=== PATIENT | female | born 1950 | race Caucasian/White ===

== ENCOUNTER 2020-12-13 03:45 | Inpatient (IN) ==
[2020-12-13 04:00] LABS: ABG BASE EXCESS -8.3 mmol/L (-2.0-2.0)
[2020-12-13 04:01] LABS: ABG ALLEN TEST POS; ABG HCO3 14.3 mmol/L (22-26)
[2020-12-13 04:37] LABS: BASOPHILS % (AUTO) 0.4 % (0.2-1.0); HEMATOCRIT 29.6 % (36.0-47.0); HEMOGLOBIN 10.1 g/dL (12.0-16.0); LYMPHOCYTES # (AUTO) 0.6 X10^3/uL (1.3-2.9); LYMPHOCYTES % (AUTO) 17.8 % (21.0-51.0); MEAN CORPUSCULAR HEMOGLOBIN 28.4 pg (27.0-34.0); MEAN CORPUSCULAR HGB CONC 34.2 g/dL (33.0-35.0); MEAN PLATELET VOLUME 7.5 fL (7.4-11.0); MONOCYTES # (AUTO) 0.2 x10^3/uL (0.3-0.8); MONOCYTES % (AUTO) 6.8 % (0.0-13.0); NEUTROPHILS # (AUTO) 2.6 x10^3/uL (2.2-4.8); PLATELET COUNT 156 X10^3/uL (150.0-450.0); RED BLOOD COUNT 3.57 X10^6/uL (3.5-5.4); RED CELL DISTRIBUTION WIDTH 13.2 % (11.6-16.5); WHITE BLOOD COUNT 3.5 X10^3/uL (3.6-10.0)
[2020-12-13 04:51] LABS: ALBUMIN 2.9 g/dL (3.4-5.0); CREATININE 3.9 mg/dL (0.55-1.02); TOTAL PROTEIN 7.7 g/dL (6.4-8.2)
[2020-12-13 05:01] LABS: CALCIUM 7.9 mg/dL (8.5-10.1); COR CA(FOR HYPOALB) 8.8 mg/dL (8.5-10.1)
[2020-12-13 05:08] LABS: BILIRUBIN,URINE NEGATIVE (NEGATIVE); GLUCOSE, URINE NEGATIVE (NEGATIVE); KETONES,URINE NEGATIVE (NEGATIVE); NITRITES,URINE NEGATIVE (NEGATIVE)
--- NOTE | 2020-12-13 05:30 | DR.SOBA ---
HPI Time Seen Time Seen by Provider: 12/13/20 05:15 Primary Care Physician Primary Care Physician: BYRON Complaints Chief Complaint Doctors Comments: Pt. is a 70 y/o female presenting with SOB, low O2 and a COVID home test which was positive today. Her sats at home was in the 80s. Symptoms started 3-4 days ago. She very recently (< 2 weeks). had a stroke. Chief Complaint:: PT IN ED VIA WHEELCHAIR WITH C/O SOB AND LOW O2 SAT. PT 80% ON 3L/NC. FAMILY STATES PT HAD COVID HOME TEST TODAY WHICH WAS POSITIVE. FAMILY STATES SYMPTOMS STARTED 3-4 DAYS AGO. COVID-19 Has patient experienced Coronavirus symptoms: Yes Coronavirus symptoms experienced: Coughing and Shortness of Breath Reviewed Nurses Notes Reviewed: Yes Source History Provided: Family Member Mode of Arrival Mode of Arrival: Wheelchair Timing Onset of Chief Complaint: 12/09/20 PMH PMH Past Medical History: Yes Past Medical History: Anemia, Anxiety, Asthma, COPD, Coronary Artery Disease, CVA, Dyslipidemia, Hypertension, Renal Disease and Seizures Past Surgical History: Yes Surgical History: Appendectomy, CABG/Valve Surgery, Cholecystectomy, RISK MGR Surgery and Ortho Surgery Past Surgical History Comment: RIGHT CARPAL TUNNEL RIGHT ANKLE LOOP RECORDER Family History History of Family Medical Conditions: Yes Family Medical History: Diabetes Mellitus, Cancer, [place], Coronary Artery Disease, Heart Failure and Hypertension Social History Does patient currently use any type of tobacco product: No Have you used tobacco products in the last 12 months: No Type of Tobacco Use: None Does any household member use tobacco: No Alcohol Use: None Do you use any recreational Drugs:: No Lives With: Family Lives Where: Home Travel Risk Has patient experienced Coronavirus symptoms: Yes Coronavirus symptoms experienced: Coughing and Shortness of Breath Infectious screening In the last 2 months have you had wt loss of >10#?: NO Have you had fever, night sweats or hemotysis?: No Have you traveled outside the country in the last 6 months?: No Isolation: Droplet PE Vital Signs Vitals: Temperature 98.7 F Pulse Rate 103 Respiratory Rate 29 Blood Pressure [Right Arm] 184/78 Blood Pressure 144/60 O2 Sat by Pulse Oximetry 92 General Limitations: No Limitations General Appearance: Alert and In No Apparent Distress Head Head Exam: Normal Inspection, Atraumatic and Normocephalic Eyes Eye exam: Normal Appearance and EOMI ENT ENT Exam: Normal Exam, Normal Oropharynx, Normal External Ear Exam and Mucous Membranes Moist Neck Neck Exam: Normal Inspection, Full ROM and Trachea Midline Chest Chest Inspection: Normal Inspection and Symmetric Chest Wall Rise Respiratory Respiratory Exam: Normal Lung Sounds Bilat Cardiovascular Cardiovascular Exam: Regular Rate, Normal Rhythm, Normal Heart Sounds, +S1 and +S2 Abdominal Exam Abdominal Exam: Normal Inspection, Normal Bowel Sounds and Soft Back Back Exam: Normal Inspection Neurologic Neurological Exam: Alert Psychiatric Psychiatric Exam: Normal Affect and Normal Mood Skin Skin Exam: Intact and Normal Color COURSE Education/Counseling Education/Counseling: Patient, Family, Education and Counseling Educated On: Treatment, Diagnosis, Prognosis and Needs for Follow Up ROR Labs Reviewed Laboratory Results Reviewed?: Yes Result Diagrams: 12/16/20 06:24 12/16/20 13:54 Laboratory: 12/13/20 04:45 Urine,Catheterized Urine Culture - Final Klebsiella Pneumoniae WBC 3.5 X10^3/uL (3.6-10.0) L 12/13/20 04:15 RBC 3.57 X10^6/uL (3.5-5.4) 12/13/20 04:15 Hgb 10.1 g/dL (12.0-16.0) L 12/13/20 04:15 Hct 29.6 % (36.0-47.0) L 12/13/20 04:15 MCV 83.0 fL (80.0-100.0) 12/13/20 04:15 MCH 28.4 pg (27.0-34.0) 12/13/20 04:15 MCHC 34.2 g/dL (33.0-35.0) 12/13/20 04:15 RDW 13.2 % (11.6-16.5) 12/13/20 04:15 Plt Count 156 X10^3/uL (150.0-450.0) 12/13/20 04:15 MPV 7.5 fL (7.4-11.0) 12/13/20 04:15 Neut % (Auto) 75.0 % (42.0-75.0) 12/13/20 04:15 Lymph % (Auto) 17.8 % (21.0-51.0) L 12/13/20 04:15 [facility] % (Auto) 6.8 % (0.0-13.0) 12/13/20 04:15 Eos % (Auto) 0.0 % (0.9-2.9) L 12/13/20 04:15 Baso % (Auto) 0.4 % (0.2-1.0) 12/13/20 04:15 Neut # (Auto) 2.6 x10^3/uL (2.2-4.8) 12/13/20 04:15 Lymph # (Auto) 0.6 X10^3/uL (1.3-2.9) L 12/13/20 04:15 [facility] # (Auto) 0.2 x10^3/uL (0.3-0.8) L 12/13/20 04:15 Eos # (Auto) 0.0 x10^3/uL (0.0-0.2) 12/13/20 04:15 Baso # (Auto) 0.0 X10^3/uL (0.0-0.1) 12/13/20 04:15 Absolute Nucleated RBC 0.1 /100WBC 12/13/20 04:15 D-Dimer 2.84 ug/ml (0.0-0.57) H* 12/13/20 04:15 Sample Site Lr 12/13/20 03:55 ABG pH 7.420 (7.35-7.45) 12/13/20 03:55 ABG pCO2 22.0 mmHg (35.0-45.0) L 12/13/20 03:55 ABG pO2 48.0 mmHg (80.0-100.0) L* 12/13/20 03:55 ABG HCO3 14.3 mmol/L (22-26) L* 12/13/20 03:55 ABG O2 Saturation 84.0 % (90-100) L* 12/13/20 03:55 ABG Base Excess -8.3 mmol/L (-2.0-2.0) L 12/13/20 03:55 Brijesh Test Pos 12/13/20 03:55 A-a Gradient 238.0 mmHg 12/13/20 03:55 FiO2 44.0 12/13/20 03:55 Blood Gas Comments Maurice well ae 12/13/20 03:55 Sodium 128 mmol/L (136-145) L 12/13/20 04:15 Corrected Sodium 128 mmol/L (136-145) L 12/13/20 04:15 Potassium 6.1 mmol/L (3.5-5.1) H* 12/13/20 04:15 Chloride 94 mmol/L (98-107) L 12/13/20 04:15 Carbon Dioxide 16.0 mmol/L (21-32) L 12/13/20 04:15 BUN 78 mg/dL (7-18) H 12/13/20 04:15 Creatinine 3.90 mg/dL (0.55-1.02) H 12/13/20 04:15 Est GFR (MDRD) Af Amer 15 (>60) L 12/13/20 04:15 Est GFR (MDRD) Non-Af 12 (>60) L 12/13/20 04:15 Glucose 118 mg/dL (65-99) H 12/13/20 04:15 Calcium 7.9 mg/dL (8.5-10.1) L 12/13/20 04:15 Corrected Calcium 8.8 mg/dL (8.5-10.1) 12/13/20 04:15 Ferritin 3650 ng/mL (8-252) H 12/13/20 04:15 Total Bilirubin 0.30 mg/dL (0.2-1.0) 12/13/20 04:15 AST 135 Units/L (15-37) H 12/13/20 04:15 ALT 119 Units/L (12-78) H 12/13/20 04:15 Alkaline Phosphatase 164 Units/L (46-116) H 12/13/20 04:15 Creatine Kinase 104 Units/L (26-192) 12/13/20 05:40 CK-MB (CK-2) 1.1 ng/mL (0-4.0) 12/13/20 05:40 CK/CKMB % Calc 1.1 % (<4) 12/13/20 05:40 Troponin I < 0.02 ng/mL (0-1.5) 12/13/20 05:40 C-Reactive Protein 46.90 mg/L (0-3.0) H 12/13/20 04:15 B-Natriuretic Peptide 74.0 pg/mL (0-79) 12/13/20 04:15 Total Protein 7.7 g/dL (6.4-8.2) 12/13/20 04:15 Albumin 2.9 g/dL (3.4-5.0) L 12/13/20 04:15 Globulin 4.8 g/dL (2.5-4.5) H 12/13/20 04:15 Albumin/Globulin Ratio 0.6 Ratio (1.1-2.1) L 12/13/20 04:15 Specimen Type Catherized urine 12/13/20 04:45 Urine Color Yellow (YELLOW) 12/13/20 04:45 Urine Appearance Cloudy (CLEAR) 12/13/20 04:45 Urine pH 5.0 (5.0 - 8.0) 12/13/20 04:45 Ur Specific [place] 1.020 (1.000-1.030) 12/13/20 04:45 Urine Protein 4+ (NEGATIVE) 12/13/20 04:45 Urine Glucose (UA) Negative (NEGATIVE) 12/13/20 04:45 Urine Ketones Negative (NEGATIVE) 12/13/20 04:45 Urine Occult Blood 3+ (NEGATIVE) 12/13/20 04:45 Urine Nitrite Negative (NEGATIVE) 12/13/20 04:45 Urine Bilirubin Negative (NEGATIVE) 12/13/20 04:45 Urine Urobilinogen Normal (NORMAL) 12/13/20 04:45 Ur Leukocyte Esterase 3+ (NEGATIVE) 12/13/20 04:45 Urine RBC 5-10 /HPF (0-3) A 12/13/20 04:45 Urine WBC Tntc /HPF (0-5) A 12/13/20 04:45 Ur Squamous Epith Cells Few /HPF (NEGATIVE) 12/13/20 04:45 Urine Bacteria 3+ /HPF (NEGATIVE) 12/13/20 04:45 Ur Culture Indicated? Yes/culture set up 12/13/20 04:45 SARS-CoV-2 (PCR) Positive (NEGATIVE) A 12/13/20 04:15 Influenza Type A (PCR) Negative (NEGATIVE) 12/13/20 04:15 Influenza Type B (PCR) Negative (NEGATIVE) 12/13/20 04:15 RSV (PCR) Negative (NEGATIVE) 12/13/20 04:15 EKG Rate: 82 [place]: Normal Rhythm: NSR Block: None Hypertrophy: None ST: Normal Opioid Opioid Risk Tool Age (Bonifacio box if 16-45): No History of Preadolescent Sexual Abuse: No Total: 0 Total Score Risk Category: Low Risk Copyright: Arturo MATHEWS predicting aberrant behaviors Diagnosis Discharge Problem: Acute hyponatremia, Acute hyperkalemia, Metabolic acidosis, CKD (chronic kidney disease) stage 5, GFR less than 15 ml/min, D-dimer, elevated, Acute UTI Anemia in chronic kidney disease Qualifiers: Chronic kidney disease stage: stage 5, not on chronic dialysis Qualified Code(s): N18.5 - Chronic kidney disease, stage 5 Instructions Forms: Precautions for COVID19 Patient Portal Social Distancing ADDITIONAL NOTES Additional Notes Additional Notes:
[2020-12-13 05:31] LABS: BLOOD/HEMOGLOBIN,URINE 3+ (NEGATIVE); LEUKOCYTE ESTERASE ,URINE 3+ (NEGATIVE); PROTEIN,URINE 4+ (NEGATIVE); UROBILINOGEN,URINE NORMAL (NORMAL)
[2020-12-13] MEDS ORDERED: HumuLIN R SUBCUT PRN ×2 (05:35→11:06)
[2020-12-13] MEDS ORDERED: SODIUM BICARBONATE 8.4% INJ ADULT IVP ONE (05:35)
[2020-12-13] MEDS ORDERED: CALCIUM GLUCONATE 10% 1 G in NS 100 ML IV 100 ML IV ONE (05:36)
[2020-12-13 05:37] LABS: APPEARANCE,URINE CLOUDY (CLEAR); COLOR,URINE YELLOW (YELLOW); SQUAMOUS EPITHELIAL CELL,UR FEW /HPF (NEGATIVE)
[2020-12-13 05:38] LABS: BACTERIA,URINE 3+ /HPF (NEGATIVE)
[2020-12-13] MEDS ORDERED: D50W ABBOJECT SYR IV ONE (05:42)
[2020-12-13] MEDS ORDERED: D50W ABBOJECT SYR ONE (05:47)
[2020-12-13] MEDS ORDERED: NS 100 ML IV 100 ML ONE ×2 (05:47→12:51)
[2020-12-13] MEDS ORDERED: SODIUM BICARBONATE 8.4% INJ ADULT ONE (05:47)
[2020-12-13] MEDS ORDERED: HumuLIN R ONE ×2 (05:48→10:25)
[2020-12-13 06:11] LABS: CKMB % 1.1 % (<4); CREATINE KINASE 104 Units/L (26-192); CREATINE KINASE MB 1.1 ng/mL (0-4.0); TROPONIN I < 0.02 ng/mL (0-1.5)
--- NOTE | 2020-12-13 06:33 | RAD ---
HISTORYSOBSTUDYCHEST, 1 VIEWCOMPARISONNo images available.TECHNIQUEAP view of the chestFINDINGSStatus post median sternotomy and CABG. Cardiac and mediastinal contours are within normal limits. Mild basilar predominant hazy and interstitial pulmonary opacities. The right costophrenic sulcus is excluded from the field of view. No discernible pleural effusion or pneumothorax.IMPRESSIONBasilar predominant hazy and interstitial opacities consistent with pneumonia such as COVID 19.Electronically signed by: Steve Olivas (Dec 13, 2020 06:31:12)
[2020-12-13] MEDS ORDERED: LEVAQUIN TAB 500 MG PO ONE (07:42)
[2020-12-13] MEDS ORDERED: LEVAQUIN PREMIX IV 500 MG 500 MG/100 ML BAG IV ONE (08:44)
[2020-12-13] MEDS ORDERED: NS 250 ML IV 250 ML IV ONE ×2 (08:44→12:51)
[2020-12-13] MEDS: LEVAQUIN PREMIX IV 500 MG 500 MG/100 ML BAG IV SCH (08:45)
[2020-12-13] MEDS ORDERED: CALCIUM GLUCONATE 10% IV ONE (10:25)
[2020-12-13] MEDS ORDERED: ROBITUSSIN DM PO PRN (11:06)
[2020-12-13] MEDS ORDERED: TUSSIONEX PENNKINETIC SUSP PO PRN (11:06)
[2020-12-13] MEDS ORDERED: REMDESIVIR 200 MG in NS 250 ML IV 250 ML IV ONE (11:06)
[2020-12-13] MEDS ORDERED: OFIRMEV IV 1000 MG VIAL 1,000 MG/100 ML VIAL IV PRN (11:44)
[2020-12-13] MEDS ORDERED: OFIRMEV IV 1000 MG VIAL 1,000 MG/100 ML VIAL IV ONE (11:45)
[2020-12-13] MEDS ORDERED: ACCUNEB 1.25 MG NEBULE ONE (11:49)
[2020-12-13] MEDS ORDERED: ZyrTEC TAB 10 MG PO SCH (12:00)
[2020-12-13] MEDS ORDERED: IVERMECTIN PO SCH (12:00)
[2020-12-13] MEDS ORDERED: PHARMACY CONSULT - IVERMECTIN XX SCH (12:00)
[2020-12-13] MEDS ORDERED: PEPCID TAB 20 MG PO SCH (12:00)
[2020-12-13] MEDS: ACCUNEB 1.25 MG NEBULE NEB SCH ×3 (12:10→20:35)
[2020-12-13 12:22] LABS: CREATINE KINASE MB 1.1 ng/mL (0-4.0); TROPONIN I 0.04 ng/mL (0-1.5)
[2020-12-13] MEDS ORDERED: SOLU-Medrol 125 MG VIAL ONE (12:50)
[2020-12-13] MEDS ORDERED: HEPARIN SODIUM INJ 5000 UNITS ONE (12:50)
[2020-12-13] MEDS ORDERED: REMDESIVIR IV ONE (12:50)
[2020-12-13] MEDS ORDERED: PEPCID 20 MG IV PREMIX* 20 MG/50 ML BAG IV ONE (12:51)
[2020-12-13] MEDS ORDERED: FORTAZ or TAZICEF VIAL INJ ONE (12:51)
[2020-12-13] MEDS: NS IV SCH (13:08)
[2020-12-13] MEDS: SOLU-Medrol 125 MG VIAL IVP SCH ×3 (13:08→21:17)
[2020-12-13] MEDS: FORTAZ OR TAZICEF IV SCH (13:08)
[2020-12-13] MEDS: REMDESIVIR 100 MG in NS 250 ML IV 250 ML IV SCH (13:09)
[2020-12-13] MEDS: PEPCID 20 MG IV PREMIX* 20 MG/50 ML BAG IV SCH (13:09)
[2020-12-13] MEDS: HEPARIN SODIUM INJ 5000 UNITS SC SCH ×2 (13:09→21:15)
[2020-12-13] MEDS ORDERED: TESSALON PERLES PO SCH (14:00)
[2020-12-13] MEDS ORDERED: ASCORBIC ACID INJ MULTI-DOSE VIAL IV ONE (15:49)
[2020-12-13] MEDS ORDERED: NS 50 ML IV 50 ML IV ONE (15:49)
[2020-12-13] MEDS: ASCORBIC ACID INJ MULTI-DOSE VIAL 1,500 MG in NS 50 ML IV 50 ML IV SCH ×2 (16:25→21:14)
[2020-12-13 18:25] LABS: ALBUMIN 2.6 g/dL (3.4-5.0); CALCIUM 8.1 mg/dL (8.5-10.1); COR CA(FOR HYPOALB) 9.2 mg/dL (8.5-10.1); CREATININE 4.18 mg/dL (0.55-1.02)
[2020-12-13 18:30] LABS: CKMB % 1.1 % (<4); CREATINE KINASE MB 1.4 ng/mL (0-4.0); TROPONIN I 0.05 ng/mL (0-1.5)
[2020-12-13 18:33] LABS: CARBON DIOXIDE 14.9 mmol/L (21-32)
[2020-12-13] MEDS ORDERED: NS 1000 ML 1,000 ML IV ONE ×2 (18:53→19:13)
--- NOTE | 2020-12-13 19:45 | DR.H&P ---
H&P - History & Physical for Day of: H&P Date: 12/13/20 - Chief Complaint Chief Complaint: AMS, SOB, COUGH, INCREASED WEAKNESS - History of Present Illness History of Present Illness: IS A 70 YEAR OLD PATIENT OF . SHE PRESENTED TO THE ER FOR COMPLAINTS OF SHORTNESS OF BREATH, NON- PRODUCTIVE COUGH, AND GENERALIZED WEAKNESS. PATIENTS FAMILY MEMBER REPORTS THAT THEY DID A HOME COVID TEST AND IT WAS POSITIVE. PATIENTS DAUGHTER REPORTS THAT PATIENTS OXYGEN SATURATIONS WERE IN THE 70s ON ROOM AIR AT HOME. HER PMH INCLUDES RECENT CVA, ANEMIA, ANXIETY, ASTHMA, COPD, CAD, DYSLIPIDEMIA, HTN, RENAL DISEASE, SEIZURES, APPENDECTOMY, CABG, CHOLECYTECTOMY, BALL WINDER SURGERY, AND CARPAL TUNNEL SURGERY. SHE HAS RESIDUAL LEFT SIDED WEAKNESS FROM RECENT CVA. PATIENTS DAUGHTER REPORTS THAT CVA OCCURRED ABOUT TWO WEEKS AGO. ON EXA MINATION, PATIENT IS LETHARGIC AND HAS SLURRED SPEECH. PATIENT WAS NOT ALERT ENOUGH TO FOLLOW COMMANDS. PATIENTS DAUGHTER REPORTS THAT PATIENT HAS ALSO HAD DIFFICULTY SWALLOWING AND OFTEN CHOKES ON FOOD/LIQUIDS. ON ARRIVAL, VITALS WERE 98.7-80-25-80%NC 4LPM-157/67. SHE WAS PLACED ON THE BIPAP AND SATURATIONS INCREASED TO 100%. LABS WERE OBTAINED. ABNORMAL LAB VALUES INCLUDE THE FOLLOWING: WBC 3.5, HGB 10.1, HCT 29.6, D-DIMER 2.84, SODIUM 128, POTASSIUM 6.1, CHLORIDE 94, CARBON DIOXIDE 16.0, BUN 78, CREATININE 3.90, GLUCOSE 118, CALCIUM 7.9, FERRITIN 3650, AST 135, ALT 119, ALK PHOS 164, CRP 46.90, ALUBMIN 2.9, GLOBULIN 4.8. CARDIAC ENZYMES WITHIN NORMAL LIMITS. COVID-19 POSITIVE. RSV AND INFLUENZA WERE NEGATIVE. AN ABG WAS OBTAINED AND REVEALED: PH 7.420, PC02 22.0, P02 48, HC03 14.3, 02 SAT 84, BASE EXCESS -8.3, A-A GRADIENT 238, FI02 44. URINALYSIS REVEALED: WBC TNTC, RBC 5-10, LEUKOCYTES 3+, BACTERIA 3+, OCCULT BLOOD 3+. A URINE CULTURE AND BLOOD CULTURES WERE SET UP. A CHEST XRAY WAS OBTAINED AND REVEALED: Basilar predominant hazy and interstitial opacities consistent with pneumonia such as COVID 19. EKG REVEALED: SINUS RHYTHM WITH HR 82. AN ECHO WAS OBTAINED AND REVEALED AN EJECTION FRACTION OF 67%. RSVP 22mmHg. IN THE ER, SHE WAS GIVEN AN AMP OF D50, AN AMP OF SODIUM BICARB, AND HUMULIN R 10 UNITS FOR HER POTASSIUM. SHE WAS ADMITTED TO THE HOSPITAL FOR FURTHER EVALUATION AND TREATMENT OF PNEUMONIA DUE TO COVID-19, HYPOXIA, ACUTE RENAL FAILURE, AND URINARY TRACT INFECTION. SHE WAS STARTED ON NS AT 150 ML/HR, LEVAQUIN 500MG IV Q48H, FORTAZ 0.5G IV DAILY, REMDESIVIR 100MG IV DAILY, ASCORBIC ACID 1500MG IV Q6H, ALBUTEROL NEBS QID, PULMICORT NEBS BID, BROVANA INHALER BID, SOLU-MEDROL 80MG IV Q8H, HEPARIN 5000 UNITS SC TID, PEPCID 20MG IV BID, PROTONIX 40MG IV DAILY, THIAMINE 200MG IV BID, AND HUMULIN R SLIDING SCALE. WE WILL ALSO BOLUS 1 LITER OF NORMAL SALINE. WE WILL HAVE SPEECH THERAPY EVALUATE PATIENT. OTHERWISE, WE PLAN TO FOLLOW UP WITH AM LABS AND CHEST XRAY AND CONTINUE TO MONITOR. TIME SPENT ON CLINICAL ASSESSMENT, REVIEWING LABS AND IMAGING, DECISION MAKING, AND DOCUMENTATION GREATER THAN 75 MINUTES. - Past Medical History Past Medical History: Coronary Artery Disease, Hypertension, Dyslipidemia, Renal Disease, Anxiety, Anemia, CVA, Seizures, COPD, Asthma - Past Surgical History Surgical History: CABG/Valve Surgery, Cholecystectomy, Ortho Surgery - Family History Family Medical History: Diabetes Mellitus, Cancer - Social History Does patient currently use any type of tobacco product: No Have you used tobacco products in the last 12 months: Yes Type of Tobacco Use: Cigarettes Does any household member use tobacco: No Alcohol Use: None Drug Use: None - Medications Home Medications: codeine Allergy (Verified 12/13/20 03:58) Penicillins Allergy (Verified 12/13/20 03:58) Sulfa (Sulfonamide Antibiotics) [SULFA] Allergy (Verified 12/13/20 03:58) CONTINUE taking the following medications albuterol sulfate 2.5 mg CONTINUOUS NEBULIZATION BID PRN 12/13/20 [History] alprazolam 0.25 mg PO QID PRN 12/13/20 [History] amlodipine 10 mg PO DAILY 12/13/20 [History] atorvastatin 80 mg PO HS 12/13/20 [History] oxybutynin chloride 5 mg PO DAILY 12/13/20 [History] phenytoin sodium extended 100 mg PO QAM 12/13/20 [History] phenytoin sodium extended 300 mg PO QHS 12/13/20 [History] ropinirole 0.5 mg PO DAILY 12/13/20 [History] - Review of Systems Constitutional: See HPI, Weakness Eyes: No Symptoms Reported ENT: No Symptoms Reported Respiratory: See HPI, Cough, Shortness of Breath Cardiovascular: No Symptoms Reported Gastrointestinal: No Symptoms Reported Genitourinary: No Symptoms Reported Musculoskeletal: No Symptoms Reported Skin: No Symptoms Reported Neurological: Weakness - Physical Exam Vital Signs: Temperature 98.2 F Pulse Rate 102 Respiratory Rate 33 Blood Pressure [Right Arm] 184/78 Blood Pressure 174/73 O2 Sat by Pulse Oximetry 99 Oriented: Unable to test Eyes: Normal Ear: Normal Nose: Normal Throat: Normal Respiratory: Rales Throughout Cardiovascular: Normal : Normal Auscultation: Bowel Sounds: Normal Palpation: Normal Tenderness: Normal Skin: Decreased [place] Musculoskeletal: Left (LEFT SIDED RESIDUAL WEAKNESS FROM RECENT CVA ), Arm, Leg, Motor Deficit Psychiatric: Other (LETHARGIC ) Affect: Flat Speech Pattern: Slurred - Assessment/Plan (1) Pneumonia due to COVID-19 virus Status: Acute Plan: ADMIT, BIPAP/SUPPLEMENTAL OXYGEN, NS AT 150 ML/HR, LEVAQUIN 500MG IV Q48H, FORTAZ 0.5G IV DAILY, REMDESIVIR 100MG IV DAILY, ASCORBIC ACID 1500MG IV Q6H, ALBUTEROL NEBS QID, PULMICORT NEBS BID, BROVANA INHALER BID, SOLU-MEDROL 80MG IV Q8H, HEPARIN 5000 UNITS SC TID, PEPCID 20MG IV BID, PROTONIX 40MG IV DAILY, THIAMINE 200MG IV BID, AND HUMULIN R SLIDING SCALE. (2) Hypoxia Status: Acute (3) Acute on chronic renal failure Qualifiers: Acute renal failure type: unspecified Chronic kidney disease stage: unspecified stage Qualified Code(s): N17.9 - Acute kidney failure, unspecified; N18.9 - Chronic kidney disease, unspecified Status: Acute (4) UTI (urinary tract infection) Qualifiers: Urinary tract infection type: acute cystitis Hematuria presence: with hematuria Qualified Code(s): N30.01 - Acute cystitis with hematuria Status: Acute (5) Hyperkalemia Status: Acute (6) Dysphagia Qualifiers: Dysphagia type: unspecified Qualified Code(s): R13.10 - Dysphagia, unspecified Status: Acute (7) Recent cerebrovascular accident (CVA) Status: Acute (8) HTN (hypertension) Qualifiers: Hypertension type: primary hypertension Qualified Code(s): I10 - Essential (primary) hypertension Status: Chronic (9) CAD (coronary artery disease) Qualifiers: Coronary Disease-Associated Artery/Lesion type: [place] artery [place] vs. transplanted heart: [place] heart Associated angina: unspecified whether angina present Qualified Code(s): I25.10 - Atherosclerotic heart disease of [place] coronary artery without angina pectoris Status: Chronic (10) COPD (chronic obstructive pulmonary disease) Qualifiers: COPD type: unspecified COPD Qualified Code(s): J44.9 - Chronic obstructive pulmonary disease, unspecified Status: Chronic - Allergies Allergies/Adverse Reactions: Allergies Allergy/AdvReac Type Severity Reaction Status Date / Time codeine Allergy Verified 12/13/20 03:58 Penicillins Allergy Verified 12/13/20 03:58 Sulfa (Sulfonamide Allergy Verified 12/13/20 03:58 Antibiotics) [SULFA]
[2020-12-13] MEDS: BROVANA IN SCH (20:35)
[2020-12-13] MEDS: PULMICORT NEB TX 0.5 MG NEB SCH (20:35)
[2020-12-13] MEDS ORDERED: LIPITOR TAB 80 MG PO SCH (21:00)
[2020-12-13] MEDS ORDERED: MELATONIN PO SCH (21:00)
[2020-12-13] MEDS ORDERED: SINGULAIR TAB 10 MG PO SCH (21:00)
[2020-12-13] MEDS: SNACK - Diabetic Appropriate PO SCH (21:14)
[2020-12-13] MEDS: THIAMINE HCL INJ IVP SCH (21:15)
[2020-12-13] MEDS ORDERED: NORMODYNE INJ 20 MG VIAL IV PRN (21:44)
[2020-12-13] MEDS: NS 1000 ML 1,000 ML IV SCH (23:07)
[2020-12-14 00:02] LABS: CKMB % 1.6 % (<4); CREATINE KINASE MB 2.2 ng/mL (0-4.0); TROPONIN I 0.04 ng/mL (0-1.5)
[2020-12-14] MEDS: NS 1000 ML 1,000 ML IV SCH ×3 (05:00→21:59)
[2020-12-14] MEDS: ASCORBIC ACID INJ MULTI-DOSE VIAL 1,500 MG in NS 50 ML IV 50 ML IV SCH ×4 (05:48→21:59)
[2020-12-14 05:49] LABS: ABG BASE EXCESS -10.2 mmol/L (-2.0-2.0)
[2020-12-14] MEDS: HEPARIN SODIUM INJ 5000 UNITS SC SCH (05:50)
[2020-12-14 05:51] LABS: ABG HCO3 12.7 mmol/L (22-26)
[2020-12-14] MEDS: SOLU-Medrol 125 MG VIAL IVP SCH ×4 (05:53→22:00)
[2020-12-14 05:56] LABS: ALBUMIN 2.6 g/dL (3.4-5.0); CALCIUM 8.4 mg/dL (8.5-10.1); COR CA(FOR HYPOALB) 9.5 mg/dL (8.5-10.1); CREATININE 4.05 mg/dL (0.55-1.02); TOTAL PROTEIN 7.3 g/dL (6.4-8.2)
[2020-12-14 06:19] LABS: CARBON DIOXIDE 14.9 mmol/L (21-32)
[2020-12-14 06:23] LABS: BASOPHILS % (AUTO) 0.3 % (0.2-1.0); HEMATOCRIT 27.3 % (36.0-47.0); HEMOGLOBIN 9.4 g/dL (12.0-16.0); LYMPHOCYTES # (AUTO) 0.4 X10^3/uL (1.3-2.9); LYMPHOCYTES % (AUTO) 5.1 % (21.0-51.0); MEAN CORPUSCULAR HEMOGLOBIN 29.2 pg (27.0-34.0); MEAN CORPUSCULAR HGB CONC 34.2 g/dL (33.0-35.0); MEAN CORPUSCULAR VOLUME 85.4 fL (80.0-100.0); MEAN PLATELET VOLUME 7.9 fL (7.4-11.0); MONOCYTES # (AUTO) 0.2 x10^3/uL (0.3-0.8); MONOCYTES % (AUTO) 2.5 % (0.0-13.0); NEUTROPHILS # (AUTO) 7.9 x10^3/uL (2.2-4.8); NEUTROPHILS % (AUTO) 92.1 % (42.0-75.0); PLATELET COUNT 155 X10^3/uL (150.0-450.0); RED CELL DISTRIBUTION WIDTH 13.6 % (11.6-16.5); WHITE BLOOD COUNT 8.6 X10^3/uL (3.6-10.0)
--- NOTE | 2020-12-14 07:01 | RAD ---
HISTORYSOBSTUDYPortable AP [id number]/[id number] heart size and contour. There is increasing localized airspace consolidation within the left lower lung. No change in diffuse interstitial prominence elsewhere. No pneumothorax or pleural fluid is seen. A lucency along the left cardiac border is probably technical in origin, less likely related to pneumomediastinum.IMPRESSIONIncreasing localized pneumonia left lower lung. See above.Electronically signed by: DESIRE KUMAR (Dec 14, 2020 06:59:39)
[2020-12-14 07:02] LABS: BAND NEUTROPHILS % 10 % (0-10); PLATELET MORPHOLOGY COMMENT NORMAL (NORMAL)
[2020-12-14] MEDS ORDERED: VITAMIN D3 125 mcg (5,000 UNITS) PO SCH (09:00)
[2020-12-14] MEDS ORDERED: ZINC SULFATE PO SCH (09:00)
[2020-12-14] MEDS: ACCUNEB 1.25 MG NEBULE NEB SCH ×4 (09:03→21:14)
[2020-12-14] MEDS: BROVANA IN SCH ×2 (09:03→21:14)
[2020-12-14] MEDS: PULMICORT NEB TX 0.5 MG NEB SCH ×2 (09:03→21:14)
[2020-12-14] MEDS: PROTONIX INJ 40 MG VIAL IVP SCH (09:26)
[2020-12-14] MEDS: THIAMINE HCL INJ IVP SCH ×2 (09:26→22:00)
[2020-12-14] MEDS: REMDESIVIR 100 MG in NS 250 ML IV 250 ML IV SCH (09:59)
[2020-12-14] MEDS ORDERED: CATAPRES-TTS-2 TD SCH (11:00)
--- NOTE | 2020-12-14 11:12 | RAD ---
HISTORYCentral line placementSTUDYChest AP [id number]/27/2021 4:37 a.m.FINDINGSPatient is rotated slightly to the right there is a left subclavian line with its tip in the expected position of superior vena cava. Patient is status post median sternotomy and CABG. Heart size is normal. Lungs are well inflated. Left lower lobe infiltrate is unchanged. There is increasing density in the right lower lobe suggestive of developing right lower lobe infiltrate. Upper lung edmondson are clear. No pleural effusions are identified. Bony thorax is unremarkable.IMPRESSIONLeft subclavian line tip superior vena cava. No pneumothoraxNo change left lower lobe infiltrateDeveloping density in the right lower lobe likely infiltrateElectronically signed by: PETER BOWERS (Dec 14, 2020 11:10:20)
[2020-12-14] MEDS: HEPARIN SODIUM IN D5W 25,000 UNITS/500 ML BAG IV PRN (12:04)
[2020-12-14] MEDS: CEREBYX INJ 200 MG in NS 50 ML IV 50 ML IV SCH ×2 (12:26→21:59)
--- NOTE | 2020-12-14 12:38 | DR.OPNOTE ---
OP NOTE Pre-Op Diagnosis: Patient in ICU with a diagnosis of COVID. Lack of IV access. Post-Op Diagnosis: same Procedure Date Date Of Procedure: 12/14/20 Procedure: Patient was placed in Trendelenburg position and the entire left neck and left sub clavicular area prepped and draped in sterile fashion. The skin underlying the left clavicle infiltrated with 3 mL of 1% Xylocaine. 16gauge needle used to puncture the left subclavian vein and guidewire placed without difficulty. Incision made over the guidewire at the skin edge and dilator placed over the guidewire to dilate the track. Triple lumen catheter threaded over the guidewire into the left subclavian vein. Guidewire removed. All ports aspirated of blood and flushed with heparinized saline. Antimicrobial patch placed at the skin edge. Catheter secured the skin with interrupted silk sutures. Post procedure chest x-ray should good placement with no pneumothorax. Type of Anesthesia: Local (3 cc 1 % Xylocaine) EBL: minimal Needle/Sponge Count:: correct Disposition/Condition: Pt. tolerated procedure without difficulty.
[2020-12-14] MEDS ORDERED: MORPHINE SULFATE INJ 2 MG INJ ONE (13:13)
[2020-12-14] MEDS: FORTAZ OR TAZICEF IV SCH (13:17)
[2020-12-14] MEDS: MORPHINE SULFATE INJ 2 MG INJ IVP PRN ×2 (13:17→22:32)
[2020-12-14] MEDS: NS IV SCH (13:17)
[2020-12-14] MEDS ORDERED: ATIVAN INJ 2 MG VIAL IVP PRN (14:09)
[2020-12-14] MEDS: SNACK - Diabetic Appropriate PO SCH (21:59)
[2020-12-15] MEDS: NS 1000 ML 1,000 ML IV SCH ×2 (02:45→11:48)
[2020-12-15] MEDS: ASCORBIC ACID INJ MULTI-DOSE VIAL 1,500 MG in NS 50 ML IV 50 ML IV SCH ×4 (03:00→21:29)
[2020-12-15] MEDS: SOLU-Medrol 125 MG VIAL IVP SCH ×4 (05:00→22:05)
[2020-12-15 06:29] LABS: ABG BASE EXCESS -14.3 mmol/L (-2.0-2.0); ABG HCO3 11.6 mmol/L (22-26)
[2020-12-15 08:02] LABS: BASOPHILS % (AUTO) 0.1 % (0.2-1.0); HEMATOCRIT 24.6 % (36.0-47.0); HEMOGLOBIN 8.4 g/dL (12.0-16.0); LYMPHOCYTES # (AUTO) 0.4 X10^3/uL (1.3-2.9); LYMPHOCYTES % (AUTO) 3.7 % (21.0-51.0); MEAN CORPUSCULAR HEMOGLOBIN 28.8 pg (27.0-34.0); MEAN CORPUSCULAR VOLUME 84.8 fL (80.0-100.0); MEAN PLATELET VOLUME 7.5 fL (7.4-11.0); MONOCYTES # (AUTO) 0.3 x10^3/uL (0.3-0.8); MONOCYTES % (AUTO) 2.5 % (0.0-13.0); NEUTROPHILS # (AUTO) 9.6 x10^3/uL (2.2-4.8); NEUTROPHILS % (AUTO) 93.7 % (42.0-75.0); PLATELET COUNT 183 X10^3/uL (150.0-450.0); RED CELL DISTRIBUTION WIDTH 13.9 % (11.6-16.5); WHITE BLOOD COUNT 10.3 X10^3/uL (3.6-10.0)
[2020-12-15 08:14] LABS: ALBUMIN 2.2 g/dL (3.4-5.0); CALCIUM 7.7 mg/dL (8.5-10.1); COR CA(FOR HYPOALB) 9.1 mg/dL (8.5-10.1); CREATININE 3.43 mg/dL (0.55-1.02); TOTAL PROTEIN 6.5 g/dL (6.4-8.2)
--- NOTE | 2020-12-15 08:41 | RAD ---
HISTORYSOB COPDSTUDYPortable AP [id number]/2021FINDINGSStable cardiac size and contour. No change in appearance of the bilateral asymmetric airspace disease, left greater than right. No new areas of consolidation, pneumothorax or pleural fluid identified.IMPRESSIONNo change in appearance of the bilateral pneumonia.Electronically signed by: DESIRE KUMAR (Dec 15, 2020 08:39:28)
[2020-12-15] MEDS: MORPHINE SULFATE INJ 2 MG INJ IVP PRN ×2 (08:59→16:05)
[2020-12-15 09:09] LABS: BAND NEUTROPHILS % 3 % (0-10); PLATELET MORPHOLOGY COMMENT NORMAL (NORMAL)
[2020-12-15] MEDS: PULMICORT NEB TX 0.5 MG NEB SCH ×2 (09:32→21:25)
[2020-12-15] MEDS: BROVANA IN SCH ×2 (09:32→21:25)
[2020-12-15] MEDS: ACCUNEB 1.25 MG NEBULE NEB SCH ×2 (09:33→21:25)
[2020-12-15] MEDS: CEREBYX INJ 200 MG in NS 50 ML IV 50 ML IV SCH ×2 (10:27→21:30)
[2020-12-15] MEDS: NS IV SCH (10:28)
[2020-12-15] MEDS: PROTONIX INJ 40 MG VIAL IVP SCH (10:28)
[2020-12-15] MEDS: LEVAQUIN PREMIX IV 500 MG 500 MG/100 ML BAG IV SCH (10:28)
[2020-12-15] MEDS: FORTAZ OR TAZICEF IV SCH (10:28)
[2020-12-15] MEDS: REMDESIVIR 100 MG in NS 250 ML IV 250 ML IV SCH (10:29)
[2020-12-15] MEDS: THIAMINE HCL INJ IVP SCH ×2 (10:29→21:29)
--- NOTE | 2020-12-15 10:43 | PCM.PROG ---
Progress Note - Progress Note for Day of Date of Exam: 12/14/20 - Subjective Subjective: WAS ADMITTED FOR TREATMENT OF COVID PNEUMONIA, HYPOXIA, ACUTE ON CHRONIC RENAL FAILURE, UTI, HYPERKALEMIA, DYSPHAGIA, RECENT CVA. PMH: OBESITY, GERD, GOUT, SEIZURES, AND HTN. TODAY, SHE IS LYING IN BED WITH EYES CLOSED ON MORNING ROUNDS. SHE OPENS EYES TO VERBAL STIMULI, BUT DOES NOT VERBALLY RESPOND BACK. SHE IS CURRENTLY UTILIZING THE BIPAP. HER SATURATIONS HAVE BEEN 89-93%. OXYGEN IS AT 500%. SHE BECOMES HYPOXIC WITHOUT THE USE OF THE BIPAP. ON EXAMINATION, HEART IS REGULAR IN RATE AND RHYTHM. BILATERAL LUNGS ARE NOTED WITH RALES THROUGHOUT. ABDOMEN IS ROUND, SOFT, AND NON-TENDER WITH NORMAL BOWEL SOUNDS NOTED IN ALL QUADRANTS. HER VITALS THIS MORNING ARE: 98.6-92-40-9 2%-138/98. LABS WERE OBTAINED. ABNORMAL LAB VALUES INCLUDE THE FOLLOWING: RBC 3.20, HGB 9.4, HCT 27.3, D-DIMER 4.39, POTASSIUM 5.8, CARBON DIOXIDE 14.9, BUN 80, CREATININE 4.05, GLUCOSE 170, CALCIUM 8.4, FERRITIN 9969, AST 290, ALT 202, ALK PHOS 178, CRP 168.30, BNP 395, ALBUMIN 2.6. URINE AND BLOOD CULTURES ARE PENDING. ABG OBTAINED AND REVEALED: PH 7.390, PC02 21, P02 51, HC03 12.7, 02 SAT 85, BASE EXCESS -10.2, A-A GRADIENT 279, FI02 50. A CHEST XRAY WAS OBTAINED AND REVEALED: Left subclavian line tip superior vena cava. No pneumothorax. No change left lower lobe infiltrate. Developing density in the right lower lobe likely infiltrate. SPEECH THERAPY EVALUATED PATIENT YESTERDAY AND RECOMMENDS NOTHING BY MOUTH. SHE IS CURRENTLY RECEIVING NS AT 150 ML/HR, LEVAQUIN 500MG IV Q48H, FORTAZ 0.5G IV DAILY, REMDESIVIR 100MG IV DAILY, ASCORBIC ACID 1500MG IV Q6H, ALBUTEROL NEBS QID, PULMICORT NEBS BID, BROVANA INHALER BID, SOLU-MEDROL 80MG IV Q8H, HEPARIN 5000 UNITS SC TID, PEPCID 20MG IV BID, PROTONIX 40MG IV DAILY, THIAMINE 200MG IV BID, AND HUMULIN R SLIDING SCALE. WE WILL ADD A CATAPRE S PATCH TODAY FOR ELEVATED BLOOD PRESSURES, CHANGE SUBCUTANEOUS HEPARIN TO A HEPARIN DRIP, INCREASE SOLU-MEDROL TO 125MG IV Q6H, AND ADD CEREBYX 200MG IV BID DUE TO SEIZURE DISORDER AND PATIENT BEING UNABLE TO TAKE PO MEDS. OTHERWISE, WE WILL CONTINUE WITH CURRENT PLAN OF CARE TODAY AND ATTEMPT TO WEAN DOWN OXYGEN SHE TOLERATES IT. OTHERWISE, WE WILL FOLLOW UP WITH AM LABS, CHEST XRAY, ABG, AND CONTINUE TO MONITOR. TIME SPENT ON CLINICAL ASSESSMENT, REVIEWING LABS AND IMAGING, DECISION MAKING, AND DOCUMENTATION GREATER THAN 75 MINUTES. - Past Medical Family Social History Past Med/Fam/Surg Hx: No changes since H&P Allergies: Allergies codeine Allergy (Verified 12/13/20 03:58) Penicillins Allergy (Verified 12/13/20 03:58) Sulfa (Sulfonamide Antibiotics) [SULFA] Allergy (Verified 12/13/20 03:58) - Review of Systems ROS: No change since H&P - Vital Signs and I&O's Vital Signs: Temperature 98.7 F Pulse Rate 107 Respiratory Rate 32 Blood Pressure [Right Arm] 184/78 Blood Pressure 138/98 O2 Sat by Pulse Oximetry 95 Intake and Output: Intake & Output 12/12/20 12/13/20 12/14/20 12/15/20 11:59 11:59 11:59 11:59 Intake Total 2495 / 2495 3890 / 3890 Output Total 1350 / 1350 2100 / 2100 Balance 1145 / 1145 1790 / 1790 - Physical Exam Oriented: Unable to test Eyes: Normal Ear: Normal Nose: Normal Throat: Normal Respiratory: Generalized, Diminished Cardiovascular: Normal : Normal Auscultation: Bowel Sounds: Normal Palpation: Normal Tenderness: Normal Skin: Decreased Turgur Musculoskeletal: Left (LEFT SIDED RESIDUAL WEAKNESS FROM RECENT CVA ), Arm, Leg, Motor Deficit Mood Description: Calm Affect: Flat - Laboratory and Diagnostics Result Diagrams: 12/15/20 07:48 12/15/20 07:48 Labs: 12/13/20 04:45 Urine,Catheterized Urine Culture - Final Klebsiella Pneumoniae 12/13/20 11:48 Blood Blood Culture - Preliminary 12/13/20 11:31 Blood Blood Culture - Preliminary Laboratory WBC 10.3 X10^3/uL (3.6-10.0) H 12/15/20 07:48 RBC 2.90 X10^6/uL (3.5-5.4) L 12/15/20 07:48 Hgb 8.4 g/dL (12.0-16.0) L 12/15/20 07:48 Hct 24.6 % (36.0-47.0) L 12/15/20 07:48 MCV 84.8 fL (80.0-100.0) 12/15/20 07:48 MCH 28.8 pg (27.0-34.0) 12/15/20 07:48 MCHC 34.0 g/dL (33.0-35.0) 12/15/20 07:48 RDW 13.9 % (11.6-16.5) 12/15/20 07:48 Plt Count 183 X10^3/uL (150.0-450.0) 12/15/20 07:48 Plt Count Comment Adequate (ADEQUATE) 12/15/20 07:48 MPV 7.5 fL (7.4-11.0) 12/15/20 07:48 Neut % (Auto) 93.7 % (42.0-75.0) H 12/15/20 07:48 Lymph % (Auto) 3.7 % (21.0-51.0) L 12/15/20 07:48 [place] % (Auto) 2.5 % (0.0-13.0) 12/15/20 07:48 Eos % (Auto) 0.0 % (0.9-2.9) L 12/15/20 07:48 Baso % (Auto) 0.1 % (0.2-1.0) L 12/15/20 07:48 Neut # (Auto) 9.6 x10^3/uL (2.2-4.8) H 12/15/20 07:48 Lymph # (Auto) 0.4 X10^3/uL (1.3-2.9) L 12/15/20 07:48 [place] # (Auto) 0.3 x10^3/uL (0.3-0.8) 12/15/20 07:48 Eos # (Auto) 0.0 x10^3/uL (0.0-0.2) 12/15/20 07:48 Baso # (Auto) 0.0 X10^3/uL (0.0-0.1) 12/15/20 07:48 Absolute Nucleated RBC 0.0 /100WBC 12/15/20 07:48 Total Counted 100 12/15/20 07:48 Neutrophils % (Manual) 94 % (39-76) H 12/15/20 07:48 Band Neutrophils % 3 % (0-10) 12/15/20 07:48 Lymphocytes % (Manual) 3 % (13-43) L 12/15/20 07:48 Monocytes % (Manual) 0 % (4-9) L 12/15/20 07:48 Plt Morphology Comment Normal (NORMAL) 12/15/20 07:48 RBC Morphology Normal (NORMAL) 12/15/20 07:48 PT 15.4 SECONDS (11.8-14.3) 12/14/20 10:38 INR Target Range - 12/14/20 10:38 INR 1.28 (0.8-1.3) 12/14/20 10:38 APTT 165.9 SECONDS (22.9-36.5) H* 12/15/20 07:48 APTT Cancelled 12/15/20 07:48 PTT Comment - 12/15/20 07:48 PTT Comment Cancelled 12/15/20 07:48 D-Dimer 4.97 ug/ml (0.0-0.57) H* 12/15/20 07:48 Sample Site [facility] 12/15/20 06:21 ABG pH 7.240 (7.35-7.45) L 12/15/20 06:21 ABG pCO2 27.0 mmHg (35.0-45.0) L 12/15/20 06:21 ABG pO2 61.0 mmHg (80.0-100.0) L 12/15/20 06:21 ABG HCO3 11.6 mmol/L (22-26) L* 12/15/20 06:21 ABG O2 Saturation 86.0 % (90-100) L 12/15/20 06:21 ABG Base Excess -14.3 mmol/L (-2.0-2.0) L 12/15/20 06:21 Brijesh Test Na 12/15/20 06:21 A-a Gradient 404.0 mmHg 12/15/20 06:21 FiO2 70.0 12/15/20 06:21 Blood Gas Comments Maurice abg well-mtf 12/15/20 06:21 Sodium 149 mmol/L (136-145) H 12/15/20 07:48 Corrected Sodium 151 mmol/L (136-145) H 12/15/20 07:48 Potassium 5.4 mmol/L (3.5-5.1) H 12/15/20 07:48 Chloride 113 mmol/L (98-107) H 12/15/20 07:48 Carbon Dioxide 14.0 mmol/L (21-32) L* 12/15/20 07:48 BUN 91 mg/dL (7-18) H 12/15/20 07:48 Creatinine 3.43 mg/dL (0.55-1.02) H 12/15/20 07:48 Est GFR (MDRD) Af Amer 17 (>60) L 12/15/20 07:48 Est GFR (MDRD) Non-Af 14 (>60) L 12/15/20 07:48 Glucose 187 mg/dL (65-99) H 12/15/20 07:48 POC Glucose (mg/dL) 172 mg/dL (65-99) H 12/13/20 21:26 Lactic Acid 2.5 mmol/L (0.4-2.0) H 12/13/20 19:09 Calcium 7.7 mg/dL (8.5-10.1) L 12/15/20 07:48 Corrected Calcium 9.1 mg/dL (8.5-10.1) 12/15/20 07:48 Ferritin 9943 ng/mL (8-252) H 12/15/20 07:48 Total Bilirubin 0.40 mg/dL (0.2-1.0) 12/15/20 07:48 AST 162 Units/L (15-37) H 12/15/20 07:48 ALT 127 Units/L (12-78) H 12/15/20 07:48 Alkaline Phosphatase 163 Units/L (46-116) H 12/15/20 07:48 Creatine Kinase 142 Units/L (26-192) 12/13/20 23:30 CK-MB (CK-2) 2.2 ng/mL (0-4.0) 12/13/20 23:30 CK/CKMB % Calc 1.6 % (<4) 12/13/20 23:30 Troponin I 0.04 ng/mL (0-1.5) 12/13/20 23:30 C-Reactive Protein 176.80 mg/L (0-3.0) H 12/15/20 07:48 B-Natriuretic Peptide 1760 pg/mL (0-79) H* 12/15/20 07:48 Total Protein 6.5 g/dL (6.4-8.2) 12/15/20 07:48 Albumin 2.2 g/dL (3.4-5.0) L 12/15/20 07:48 Globulin 4.3 g/dL (2.5-4.5) 12/15/20 07:48 Albumin/Globulin Ratio 0.5 Ratio (1.1-2.1) L 12/15/20 07:48 Specimen Type Catherized urine 12/13/20 04:45 Urine Color Yellow (YELLOW) 12/13/20 04:45 Urine Appearance Cloudy (CLEAR) 12/13/20 04:45 Urine pH 5.0 (5.0 - 8.0) 12/13/20 04:45 Ur Specific [place] 1.020 (1.000-1.030) 12/13/20 04:45 Urine Protein 4+ (NEGATIVE) 12/13/20 04:45 Urine Glucose (UA) Negative (NEGATIVE) 12/13/20 04:45 Urine Ketones Negative (NEGATIVE) 12/13/20 04:45 Urine Occult Blood 3+ (NEGATIVE) 12/13/20 04:45 Urine Nitrite Negative (NEGATIVE) 12/13/20 04:45 Urine Bilirubin Negative (NEGATIVE) 12/13/20 04:45 Urine Urobilinogen Normal (NORMAL) 12/13/20 04:45 Ur Leukocyte Esterase 3+ (NEGATIVE) 12/13/20 04:45 Urine RBC 5-10 /HPF (0-3) A 12/13/20 04:45 Urine WBC Tntc /HPF (0-5) A 12/13/20 04:45 Ur Squamous Epith Cells Few /HPF (NEGATIVE) 12/13/20 04:45 Urine Bacteria 3+ /HPF (NEGATIVE) 12/13/20 04:45 Ur Culture Indicated? Yes/culture set up 12/13/20 04:45 SARS-CoV-2 (PCR) Positive (NEGATIVE) A 12/13/20 04:15 Influenza Type A (PCR) Negative (NEGATIVE) 12/13/20 04:15 Influenza Type B (PCR) Negative (NEGATIVE) 12/13/20 04:15 RSV (PCR) Negative (NEGATIVE) 12/13/20 04:15 - Plan (1) Pneumonia due to COVID-19 virus Status: Acute Plan: BIPAP/SUPPLEMENTAL OXYGEN, NS AT 150 ML/HR, LEVAQUIN 500MG IV Q48H, FORTAZ 0.5G IV DAILY, REMDESIVIR 100MG IV DAILY, ASCORBIC ACID 1500MG IV Q6H, ALBUTEROL NEBS QID, PULMICORT NEBS BID, BROVANA INHALER BID, SOLU-MEDROL 125MG IV Q6H, HEPARIN DRIP, CEREBYX 200MG IV BID, CATAPRES PATCH, PEPCID 20MG IV BID, PROTONIX 40MG IV DAILY, THIAMINE 200MG IV BID, AND HUMULIN R SLIDING SCALE. (2) Hypoxia Status: Acute (3) Acute on chronic renal failure Status: Acute Qualifiers: Acute renal failure type: unspecified Chronic kidney disease stage: unspecified stage Qualified Code(s): N17.9 - Acute kidney failure, unspecified; N18.9 - Chronic kidney disease, unspecified (4) UTI (urinary tract infection) Status: Acute Qualifiers: Urinary tract infection type: acute cystitis Hematuria presence: with karen turia Qualified Code(s): N30.01 - Acute cystitis with hematuria (5) Hyperkalemia Status: Acute (6) Dysphagia Status: Acute Qualifiers: Dysphagia type: unspecified Qualified Code(s): R13.10 - Dysphagia, unspecified (7) Recent cerebrovascular accident (CVA) Status: Acute (8) HTN (hypertension) Status: Chronic Qualifiers: Hypertension type: primary hypertension Qualified Code(s): I10 - Essential (primary) hypertension (9) CAD (coronary artery disease) Status: Chronic Qualifiers: Coronary Disease-Associated Artery/Lesion type: [place] artery [place] vs. transplanted heart: [place] heart Associated angina: unspecified whether angina present Qualified Code(s): I25.10 - Atherosclerotic heart disease of [place] coronary artery without angina pectoris (10) COPD (chronic obstructive pulmonary disease) Status: Chronic Qualifiers: COPD type: unspecified COPD Qualified Code(s): J44.9 - Chronic obstructive pulmonary disease, unspecified (11) Seizure disorder Status: Chronic
--- NOTE | 2020-12-15 10:52 | PCM.PROG ---
Progress Note - Progress Note for Day of Date of Exam: 12/15/20 - Subjective Subjective: WAS ADMITTED FOR TREATMENT OF COVID PNEUMONIA, HYPOXIA, ACUTE ON CHRONIC RENAL FAILURE, UTI, HYPERKALEMIA, DYSPHAGIA, RECENT CVA. PMH: OBESITY, GERD, GOUT, SEIZURES, AND HTN. TODAY, SHE IS LYING IN BED WITH EYES CLOSED ON MORNING ROUNDS. SHE OPENS EYES TO VERBAL STIMULI, BUT DOES NOT VERBALLY RESPOND BACK. SHE IS CURRENTLY UTILIZING THE BIPAP. HER SATURATIONS HAVE BEEN 89-96%. OXYGEN IS AT 70%. SHE BECOMES HYPOXIC WITHOUT THE USE OF THE BIPAP. ON EXAMINATION, HEART IS REGULAR IN RATE AND RHYTHM. BILATERAL LUNGS ARE NOTED WITH RALES THROUGHOUT. ABDOMEN IS ROUND, SOFT, AND NON-TENDER WITH NORMAL BOWEL SOUNDS NOTED IN ALL QUADRANTS. HER VITALS THIS MORNING ARE: 98.9-100-49-9 1%-138/98. LABS WERE OBTAINED. ABNORMAL LAB VALUES INCLUDE THE FOLLOWING: WBC 10.3, RBC 2.90, HGB 8.4, HCT 24.6, D-DIMER 4.97, SODIUM 149, POTASSIUM 5.4, CHLORIDE 113, CARBON DIOXIDE 14.0, BUN 91, CREATININE 3.43, GFR 14, GLUCOSE 187, CALCIUM 7.7, FERRITIN 9943, AST 162, ALT 127, ALK PHOS 163, CRP 176.80, BNP 1760, ALBUMIN 2.2. URINE AND BLOOD CULTURES ARE PENDING. ABG OBTAINED AND REVEALED: PH 7.240, PC02 27, P02 61, HC03 11.6, 02 SAT 86, BASE EXCESS -14.3, A- A GRADIENT 404, FI02 70.0. A CHEST XRAY WAS OBTAINED AND REVEALED: Stable cardiac size and contour. No change in appearance of the bilateral asymmetric airspace disease, left greater than right. No new areas of consolidation, pneumothorax or pleural fluid identified. SPEECH THERAPY EVALUATED PATIENT AND RECOMMENDS NOTHING BY MOUTH. SHE IS CURRENTLY RECEIVING NS AT 150 ML/HR, LEVAQUIN 500MG IV Q48H, FORTAZ 0.5G IV DAILY, REMDESIVIR 100MG IV DAILY, ASCORBIC ACID 1500MG IV Q6H, ALBUTEROL NEBS QID, PULMICORT NEBS BID, BROVANA INHALER BID, SOLU-MEDROL 125MG IV Q6H, HEPARIN DRIP PER PROTOCOL, CEREBYL 200MG IV BID, CATAPRES PATCH, PEPCID 20MG IV BID, PROTONIX 40MG IV DAILY, THIAMINE 200MG IV BID, AND HUMULIN R SLIDING SCALE. OTHERWISE, WE WILL CONTINUE WITH CURRENT PLAN OF CARE TODAY AND ATTEMPT TO WEAN DOWN OXYGEN SHE TOLERATES IT. OTHERWISE, WE WILL FOLLOW UP WITH AM LABS, CHEST XRAY, ABG, AND CONTINUE TO MONITOR. TIME SPENT ON CLINICAL ASSESSMENT, REVIEWING LABS AND IMAGING, DECISION MAKING, AND DOCUMENTATION GREATER THAN 75 MINUTES. - Past Medical Family Social History Past Med/Fam/Surg Hx: No changes since H&P Allergies: Allergies codeine Allergy (Verified 12/13/20 03:58) Penicillins Allergy (Verified 12/13/20 03:58) Sulfa (Sulfonamide Antibiotics) [SULFA] Allergy (Verified 12/13/20 03:58) - Review of Systems ROS: No change since H&P - Vital Signs and I&O's Vital Signs: Temperature 98.7 F Pulse Rate 107 Respiratory Rate 32 Blood Pressure [Right Arm] 184/78 Blood Pressure 138/98 O2 Sat by Pulse Oximetry 95 Intake and Output: Intake & Output 12/12/20 12/13/20 12/14/20 12/15/20 11:59 11:59 11:59 11:59 Intake Total 2495 / 2495 3890 / 3890 Output Total 1350 / 1350 2100 / 2100 Balance 1145 / 1145 1790 / 1790 - Physical Exam Oriented: Unable to test Eyes: Normal Ear: Normal Nose: Normal Throat: Normal Respiratory: Generalized, Diminished Cardiovascular: Normal : Normal Auscultation: Bowel Sounds: Normal Palpation: Normal Tenderness: Normal Skin: Decreased Turgur Musculoskeletal: Left (LEFT SIDED RESIDUAL WEAKNESS FROM RECENT CVA ), Arm, Leg, Motor Deficit Psychiatric: Other (LETHARGIC ) Mood Description: Calm Affect: Flat Speech Pattern: Slurred - Laboratory and Diagnostics Result Diagrams: 12/15/20 07:48 12/15/20 07:48 Labs: 12/13/20 04:45 Urine,Catheterized Urine Culture - Final Klebsiella Pneumoniae 12/13/20 11:48 Blood Blood Culture - Preliminary 12/13/20 11:31 Blood Blood Culture - Preliminary Laboratory WBC 10.3 X10^3/uL (3.6-10.0) H 12/15/20 07:48 RBC 2.90 X10^6/uL (3.5-5.4) L 12/15/20 07:48 Hgb 8.4 g/dL (12.0-16.0) L 12/15/20 07:48 Hct 24.6 % (36.0-47.0) L 12/15/20 07:48 MCV 84.8 fL (80.0-100.0) 12/15/20 07:48 MCH 28.8 pg (27.0-34.0) 12/15/20 07:48 MCHC 34.0 g/dL (33.0-35.0) 12/15/20 07:48 RDW 13.9 % (11.6-16.5) 12/15/20 07:48 Plt Count 183 X10^3/uL (150.0-450.0) 12/15/20 07:48 Plt Count Comment Adequate (ADEQUATE) 12/15/20 07:48 MPV 7.5 fL (7.4-11.0) 12/15/20 07:48 Neut % (Auto) 93.7 % (42.0-75.0) H 12/15/20 07:48 Lymph % (Auto) 3.7 % (21.0-51.0) L 12/15/20 07:48 [place] % (Auto) 2.5 % (0.0-13.0) 12/15/20 07:48 Eos % (Auto) 0.0 % (0.9-2.9) L 12/15/20 07:48 Baso % (Auto) 0.1 % (0.2-1.0) L 12/15/20 07:48 Neut # (Auto) 9.6 x10^3/uL (2.2-4.8) H 12/15/20 07:48 Lymph # (Auto) 0.4 X10^3/uL (1.3-2.9) L 12/15/20 07:48 [place] # (Auto) 0.3 x10^3/uL (0.3-0.8) 12/15/20 07:48 Eos # (Auto) 0.0 x10^3/uL (0.0-0.2) 12/15/20 07:48 Baso # (Auto) 0.0 X10^3/uL (0.0-0.1) 12/15/20 07:48 Absolute Nucleated RBC 0.0 /100WBC 12/15/20 07:48 Total Counted 100 12/15/20 07:48 Neutrophils % (Manual) 94 % (39-76) H 12/15/20 07:48 Band Neutrophils % 3 % (0-10) 12/15/20 07:48 Lymphocytes % (Manual) 3 % (13-43) L 12/15/20 07:48 Monocytes % (Manual) 0 % (4-9) L 12/15/20 07:48 Plt Morphology Comment Normal (NORMAL) 12/15/20 07:48 RBC Morphology Normal (NORMAL) 12/15/20 07:48 PT 15.4 SECONDS (11.8-14.3) 12/14/20 10:38 INR Target Range - 12/14/20 10:38 INR 1.28 (0.8-1.3) 12/14/20 10:38 APTT 165.9 SECONDS (22.9-36.5) H* 12/15/20 07:48 APTT Cancelled 12/15/20 07:48 PTT Comment - 12/15/20 07:48 PTT Comment Cancelled 12/15/20 07:48 D-Dimer 4.97 ug/ml (0.0-0.57) H* 12/15/20 07:48 Sample Site [facility] 12/15/20 06:21 ABG pH 7.240 (7.35-7.45) L 12/15/20 06:21 ABG pCO2 27.0 mmHg (35.0-45.0) L 12/15/20 06:21 ABG pO2 61.0 mmHg (80.0-100.0) L 12/15/20 06:21 ABG HCO3 11.6 mmol/L (22-26) L* 12/15/20 06:21 ABG O2 Saturation 86.0 % (90-100) L 12/15/20 06:21 ABG Base Excess -14.3 mmol/L (-2.0-2.0) L 12/15/20 06:21 Brijesh Test Na 12/15/20 06:21 A-a Gradient 404.0 mmHg 12/15/20 06:21 FiO2 70.0 12/15/20 06:21 Blood Gas Comments Maurice abg well-mtf 12/15/20 06:21 Sodium 149 mmol/L (136-145) H 12/15/20 07:48 Corrected Sodium 151 mmol/L (136-145) H 12/15/20 07:48 Potassium 5.4 mmol/L (3.5-5.1) H 12/15/20 07:48 Chloride 113 mmol/L (98-107) H 12/15/20 07:48 Carbon Dioxide 14.0 mmol/L (21-32) L* 12/15/20 07:48 BUN 91 mg/dL (7-18) H 12/15/20 07:48 Creatinine 3.43 mg/dL (0.55-1.02) H 12/15/20 07:48 Est GFR (MDRD) Af Amer 17 (>60) L 12/15/20 07:48 Est GFR (MDRD) Non-Af 14 (>60) L 12/15/20 07:48 Glucose 187 mg/dL (65-99) H 12/15/20 07:48 POC Glucose (mg/dL) 172 mg/dL (65-99) H 12/13/20 21:26 Lactic Acid 2.5 mmol/L (0.4-2.0) H 12/13/20 19:09 Calcium 7.7 mg/dL (8.5-10.1) L 12/15/20 07:48 Corrected Calcium 9.1 mg/dL (8.5-10.1) 12/15/20 07:48 Ferritin 9943 ng/mL (8-252) H 12/15/20 07:48 Total Bilirubin 0.40 mg/dL (0.2-1.0) 12/15/20 07:48 AST 162 Units/L (15-37) H 12/15/20 07:48 ALT 127 Units/L (12-78) H 12/15/20 07:48 Alkaline Phosphatase 163 Units/L (46-116) H 12/15/20 07:48 Creatine Kinase 142 Units/L (26-192) 12/13/20 23:30 CK-MB (CK-2) 2.2 ng/mL (0-4.0) 12/13/20 23:30 CK/CKMB % Calc 1.6 % (<4) 12/13/20 23:30 Troponin I 0.04 ng/mL (0-1.5) 12/13/20 23:30 C-Reactive Protein 176.80 mg/L (0-3.0) H 12/15/20 07:48 B-Natriuretic Peptide 1760 pg/mL (0-79) H* 12/15/20 07:48 Total Protein 6.5 g/dL (6.4-8.2) 12/15/20 07:48 Albumin 2.2 g/dL (3.4-5.0) L 12/15/20 07:48 Globulin 4.3 g/dL (2.5-4.5) 12/15/20 07:48 Albumin/Globulin Ratio 0.5 Ratio (1.1-2.1) L 12/15/20 07:48 Specimen Type Catherized urine 12/13/20 04:45 Urine Color Yellow (YELLOW) 12/13/20 04:45 Urine Appearance Cloudy (CLEAR) 12/13/20 04:45 Urine pH 5.0 (5.0 - 8.0) 12/13/20 04:45 Ur Specific [place] 1.020 (1.000-1.030) 12/13/20 04:45 Urine Protein 4+ (NEGATIVE) 12/13/20 04:45 Urine Glucose (UA) Negative (NEGATIVE) 12/13/20 04:45 Urine Ketones Negative (NEGATIVE) 12/13/20 04:45 Urine Occult Blood 3+ (NEGATIVE) 12/13/20 04:45 Urine Nitrite Negative (NEGATIVE) 12/13/20 04:45 Urine Bilirubin Negative (NEGATIVE) 12/13/20 04:45 Urine Urobilinogen Normal (NORMAL) 12/13/20 04:45 Ur Leukocyte Esterase 3+ (NEGATIVE) 12/13/20 04:45 Urine RBC 5-10 /HPF (0-3) A 12/13/20 04:45 Urine WBC Tntc /HPF (0-5) A 12/13/20 04:45 Ur Squamous Epith Cells Few /HPF (NEGATIVE) 12/13/20 04:45 Urine Bacteria 3+ /HPF (NEGATIVE) 12/13/20 04:45 Ur Culture Indicated? Yes/culture set up 12/13/20 04:45 SARS-CoV-2 (PCR) Positive (NEGATIVE) A 12/13/20 04:15 Influenza Type A (PCR) Negative (NEGATIVE) 12/13/20 04:15 Influenza Type B (PCR) Negative (NEGATIVE) 12/13/20 04:15 RSV (PCR) Negative (NEGATIVE) 12/13/20 04:15 - Plan (1) Pneumonia due to COVID-19 virus Status: Acute Plan: BIPAP/SUPPLEMENTAL OXYGEN, NS AT 150 ML/HR, LEVAQUIN 500MG IV Q48H, FORTAZ 0.5G IV DAILY, REMDESIVIR 100MG IV DAILY, ASCORBIC ACID 1500MG IV Q6H, ALBUTEROL NEBS QID, PULMICORT NEBS BID, BROVANA INHALER BID, SOLU-MEDROL 125MG IV Q6H, HEPARIN DRIP PER PROTOCOL, CEREBYL 200MG IV BID, CATAPRES PATCH, PEPCID 20MG IV BID, PROTONIX 40MG IV DAILY, THIAMINE 200MG IV BID, AND HUMULIN R SLIDING SCALE. WE WILL HOLD HER IV FLUIDS FOR 12 HOURS AND THEN RESUME. (2) Hypoxia Status: Acute (3) Acute on chronic renal failure Status: Acute Qualifiers: Acute renal failure type: unspecified Chronic kidney disease stage: unspecified stage Qualified Code(s): N17.9 - Acute kidney failure, unspecified; N18.9 - Chronic kidney disease, unspecified (4) UTI (urinary tract infection) Status: Acute Qualifiers: Urinary tract infection type: acute cystitis Hematuria presence: with hematuria Qualified Code(s): N30.01 - Acute cystitis with hematuria (5) Hyperkalemia Status: Acute (6) Dysphagia Status: Acute Qualifiers: Dysphagia type: unspecified Qualified Code(s): R13.10 - Dysphagia, unspecified (7) Recent cerebrovascular accident (CVA) Status: Acute (8) HTN (hypertension) Status: Chronic Qualifiers: Hypertension type: primary hypertension Qualified Code(s): I10 - Essential (primary) hypertension (9) CAD (coronary artery disease) Status: Chronic Qualifiers: Coronary Disease-Associated Artery/Lesion type: [place] artery [place] vs. transplanted heart: [place] heart Associated angina: unspecified whether angina present Qualified Code(s): I25.10 - Atherosclerotic heart disease of [place] coronary artery without angina pectoris (10) COPD (chronic obstructive pulmonary disease) Status: Chronic Qualifiers: COPD type: unspecified COPD Qualified Code(s): J44.9 - Chronic obstructive pulmonary disease, unspecified (11) Seizure disorder Status: Chronic
[2020-12-15] MEDS: PEPCID 20 MG IV PREMIX* 20 MG/50 ML BAG IV SCH (11:48)
[2020-12-15] MEDS: HEPARIN SODIUM IN D5W 25,000 UNITS/500 ML BAG IV PRN (15:52)
[2020-12-15] MEDS ORDERED: HEPARIN SODIUM INJ 5000 UNITS ONE (15:53)
[2020-12-15] MEDS ORDERED: HEPARIN SODIUM INJ 5000 UNITS IVP ONE (16:06)
[2020-12-15] MEDS: SNACK - Diabetic Appropriate PO SCH (21:28)
[2020-12-16] MEDS: ASCORBIC ACID INJ MULTI-DOSE VIAL 1,500 MG in NS 50 ML IV 50 ML IV SCH ×2 (03:00→08:47)
[2020-12-16] MEDS: SOLU-Medrol 125 MG VIAL IVP SCH ×4 (05:00→22:08)
[2020-12-16 05:53] LABS: ABG BASE EXCESS -11.6 mmol/L (-2.0-2.0)
[2020-12-16 05:55] LABS: ABG HCO3 13.3 mmol/L (22-26)
--- NOTE | 2020-12-16 06:28 | RAD ---
HISTORYCOVID SOBSTUDYPortable AP [id number] normal heart size. Similar appearance of right lower lobe infiltrate, although the costophrenic angle is excluded from this image. There is interval improvemen t in airspace involvement in the left lower lung. No new areas of abnormality demonstrated. Stable po sition of central line extending to the SVC.IMPRESSIONPersistent bilateral pneumonia with interval im provement in the left lower lung.Electronically signed by: DESIRE KUMAR (Dec 16, 2020 06:27:26)
[2020-12-16 07:07] LABS: ALBUMIN 2.1 g/dL (3.4-5.0); CALCIUM 8.1 mg/dL (8.5-10.1); COR CA(FOR HYPOALB) 9.6 mg/dL (8.5-10.1); CREATININE 3.68 mg/dL (0.55-1.02); TOTAL PROTEIN 6.6 g/dL (6.4-8.2)
[2020-12-16 07:11] LABS: CARBON DIOXIDE 12.9 mmol/L (21-32)
[2020-12-16 07:18] LABS: BASOPHILS % (AUTO) 0.2 % (0.2-1.0); HEMATOCRIT 23.5 % (36.0-47.0); LYMPHOCYTES # (AUTO) 0.3 X10^3/uL (1.3-2.9); LYMPHOCYTES % (AUTO) 4.2 % (21.0-51.0); MEAN CORPUSCULAR HEMOGLOBIN 28.8 pg (27.0-34.0); MEAN CORPUSCULAR HGB CONC 33.9 g/dL (33.0-35.0); MEAN PLATELET VOLUME 7.8 fL (7.4-11.0); MONOCYTES # (AUTO) 0.2 x10^3/uL (0.3-0.8); MONOCYTES % (AUTO) 3.7 % (0.0-13.0); NEUTROPHILS % (AUTO) 91.9 % (42.0-75.0); PLATELET COUNT 177 X10^3/uL (150.0-450.0); RED BLOOD COUNT 2.77 X10^6/uL (3.5-5.4); RED CELL DISTRIBUTION WIDTH 14.1 % (11.6-16.5); WHITE BLOOD COUNT 6.5 X10^3/uL (3.6-10.0)
[2020-12-16] MEDS ORDERED: HEPARIN SODIUM INJ 5000 UNITS IVP ONE ×2 (07:35→20:57)
[2020-12-16] MEDS ORDERED: PHARMACY COMMENT IV ONE (08:00)
[2020-12-16 08:07] LABS: BAND NEUTROPHILS % 1 % (0-10)
[2020-12-16 08:08] LABS: HYPOCHROMASIA SLIGHT; PLATELET MORPHOLOGY COMMENT NORMAL (NORMAL)
[2020-12-16] MEDS: NS 1000 ML 1,000 ML IV SCH ×2 (08:46→08:47)
[2020-12-16] MEDS: REMDESIVIR 100 MG in NS 250 ML IV 250 ML IV SCH (08:47)
[2020-12-16] MEDS: THIAMINE HCL INJ IVP SCH ×2 (08:47→22:08)
[2020-12-16] MEDS: PROTONIX INJ 40 MG VIAL IVP SCH (08:47)
[2020-12-16] MEDS: ACCUNEB 1.25 MG NEBULE NEB SCH ×3 (08:55→09:55)
[2020-12-16] MEDS: BROVANA IN SCH ×2 (08:55→20:20)
[2020-12-16] MEDS: PULMICORT NEB TX 0.5 MG NEB SCH ×2 (08:55→20:20)
[2020-12-16] MEDS: FORTAZ OR TAZICEF IV SCH (09:00)
[2020-12-16] MEDS: CEREBYX INJ 200 MG in NS 50 ML IV 50 ML IV SCH ×2 (09:00→20:30)
[2020-12-16] MEDS: NS IV SCH (09:00)
[2020-12-16] MEDS ORDERED: DEXTROSE 10% 1,000 ML IV PRN (10:17)
[2020-12-16 10:39] LABS: MAGNESIUM 2.7 mg/dL (1.7-2.9); PHOSPHORUS 8.5 mg/dL (2.6-4.7)
[2020-12-16 10:41] LABS: TRIGLYCERIDES < 15 mg/dL (0-150)
[2020-12-16] MEDS ORDERED: PHARMACY CONSULT - TPN XX SCH (11:00)
[2020-12-16] MEDS ORDERED: [UNRECOGNIZED DRUG - OTHER] IV SCH ×4 (11:00)
[2020-12-16] MEDS ORDERED: NS 1/2 1000 ML IV 1,000 ML IV SCH (11:00)
[2020-12-16] MEDS ORDERED: MVI IV SCH ×4 (11:00)
[2020-12-16] MEDS ORDERED: HUMULIN R IV SCH ×4 (11:00)
[2020-12-16] MEDS ORDERED: CLINIMIX IV SCH ×4 (11:00)
[2020-12-16] MEDS: ALBUMIN HUMAN 25%- 100 ML 100 ML IV SCH ×2 (11:27→22:09)
[2020-12-16] MEDS: NS 1/2 1000 ML IV 1,000 ML with SODIUM BICARBONATE 8.4% INJ ADULT 50 ML IV SCH ×4 (11:34→22:12)
[2020-12-16] MEDS ORDERED: NS 1/2 1000 ML IV 1,000 ML IV ONE (11:40)
[2020-12-16] MEDS: HumuLIN R SUBCUT PRN ×3 (14:36→23:55)
[2020-12-16] MEDS ORDERED: HEPARIN SODIUM INJ 5000 UNITS ONE (21:00)
[2020-12-16] MEDS: MORPHINE SULFATE INJ 2 MG INJ IVP PRN (22:00)
[2020-12-16] MEDS: SNACK - Diabetic Appropriate PO SCH (22:07)
[2020-12-16 22:10] VITALS: BMI 24.4
[2020-12-17] MEDS ORDERED: HEPARIN SODIUM INJ 5000 UNITS IVP ONE ×2 (02:39→09:12)
[2020-12-17] MEDS ORDERED: HEPARIN SODIUM INJ 5000 UNITS ONE ×2 (02:41→09:14)
[2020-12-17 03:35] LABS: ABG BASE EXCESS -10.8 mmol/L (-2.0-2.0)
[2020-12-17 03:36] LABS: ABG ALLEN TEST POS; ABG HCO3 14.3 mmol/L (22-26)
[2020-12-17] MEDS: HumuLIN R SUBCUT PRN ×2 (03:37→06:26)
[2020-12-17] MEDS: SOLU-Medrol 125 MG VIAL IVP SCH ×3 (05:01→21:11)
[2020-12-17 05:55] LABS: BASOPHILS % (AUTO) 0.1 % (0.2-1.0); HEMATOCRIT 22.2 % (36.0-47.0); HEMOGLOBIN 7.4 g/dL (12.0-16.0); LYMPHOCYTES # (AUTO) 0.3 X10^3/uL (1.3-2.9); LYMPHOCYTES % (AUTO) 3.9 % (21.0-51.0); MEAN CORPUSCULAR HEMOGLOBIN 28.8 pg (27.0-34.0); MEAN CORPUSCULAR HGB CONC 33.4 g/dL (33.0-35.0); MEAN CORPUSCULAR VOLUME 86.3 fL (80.0-100.0); MEAN PLATELET VOLUME 7.7 fL (7.4-11.0); MONOCYTES # (AUTO) 0.2 x10^3/uL (0.3-0.8); MONOCYTES % (AUTO) 2.6 % (0.0-13.0); NEUTROPHILS # (AUTO) 6.2 x10^3/uL (2.2-4.8); NEUTROPHILS % (AUTO) 93.4 % (42.0-75.0); PLATELET COUNT 161 X10^3/uL (150.0-450.0); RED BLOOD COUNT 2.57 X10^6/uL (3.5-5.4); RED CELL DISTRIBUTION WIDTH 14.3 % (11.6-16.5); WHITE BLOOD COUNT 6.6 X10^3/uL (3.6-10.0)
[2020-12-17 06:08] LABS: ALBUMIN 2.6 g/dL (3.4-5.0); CALCIUM 7.6 mg/dL (8.5-10.1); CARBON DIOXIDE 16.5 mmol/L (21-32); COR CA(FOR HYPOALB) 8.7 mg/dL (8.5-10.1); CREATININE 3.77 mg/dL (0.55-1.02); TOTAL PROTEIN 6.4 g/dL (6.4-8.2)
[2020-12-17 07:02] LABS: BAND NEUTROPHILS % 2 % (0-10); PLATELET MORPHOLOGY COMMENT NORMAL (NORMAL)
--- NOTE | 2020-12-17 08:17 | RAD ---
HISTORYSOBSTUDYCHEST, 1 [id number]/29/2021FINDINGSDiffuse bilateral opacity in the lungs could be pneumonia or pulmonary edema. The findings have progressed.There may be small bilateral effusions. No pneumothorax.Heart size is normal. Vascular calcifications are present compatible with atherosclerosis.Bones are unremarkable.EKG leads are noted. Median sternotomy wires are present. Wireless loop recorder is seen in the left chest.Left subclavian central venous catheter is in the expected location of the superior vena cava.IMPRESSION1. Progressed pneumonia or pulmonary edemaElectronically signed by: Kvng Velasquez (Dec 17, 2020 08:16:03)
[2020-12-17] MEDS: FORTAZ OR TAZICEF IV SCH (08:33)
[2020-12-17] MEDS: CEREBYX INJ 200 MG in NS 50 ML IV 50 ML IV SCH ×2 (08:33→21:11)
[2020-12-17] MEDS: NS IV SCH (08:33)
[2020-12-17] MEDS: PULMICORT NEB TX 0.5 MG NEB SCH ×2 (08:38→22:01)
[2020-12-17] MEDS: BROVANA IN SCH ×2 (08:38→22:01)
[2020-12-17] MEDS: PROTONIX INJ 40 MG VIAL IVP SCH (09:00)
[2020-12-17] MEDS: THIAMINE HCL INJ IVP SCH ×2 (09:00→21:11)
[2020-12-17] MEDS: LEVAQUIN PREMIX IV 500 MG 500 MG/100 ML BAG IV SCH (09:09)
[2020-12-17] MEDS: REMDESIVIR 100 MG in NS 250 ML IV 250 ML IV SCH (09:30)
[2020-12-17] MEDS: ALBUMIN HUMAN 25%- 100 ML 100 ML IV SCH ×2 (09:30→21:28)
[2020-12-17 09:52] LABS: PREALBUMIN 14.4 mg/dL (18-35.7)
[2020-12-17] MEDS: PEPCID 20 MG IV PREMIX* 20 MG/50 ML BAG IV SCH (12:34)
[2020-12-17] MEDS: ACCUNEB 1.25 MG NEBULE NEB SCH ×2 (12:55→22:00)
[2020-12-17] MEDS ORDERED: MORPHINE SULFATE INJ 2 MG INJ IVP PRN (14:31)
[2020-12-17] MEDS ORDERED: MORPHINE SULFATE INJ 2 MG INJ ONE (14:33)
[2020-12-17] MEDS ORDERED: LANOXIN INJ IVP ONE (14:58)
[2020-12-17] MEDS ORDERED: LANOXIN INJ ONE (15:11)
[2020-12-17] MEDS ORDERED: NS 100 ML IV 100 ML ONE (15:43)
[2020-12-17] MEDS ORDERED: CARDIZEM INJ 125 MG VIAL ONE (15:44)
[2020-12-17] MEDS: CARDIZEM INJ 125 MG VIAL 125 MG in NS 100 ML IV 100 ML IV PRN (15:56)
[2020-12-17] MEDS ORDERED: CARDIZEM INJ 50 MG VIAL IVP ONE (15:57)
[2020-12-17] MEDS ORDERED: CARDIZEM INJ 50 MG VIAL ONE (15:59)
[2020-12-17] MEDS: HEPARIN SODIUM IN D5W 25,000 UNITS/500 ML BAG IV PRN (17:42)
[2020-12-17] MEDS: NS 1/2 1000 ML IV 1,000 ML with SODIUM BICARBONATE 8.4% INJ ADULT 50 ML IV SCH ×4 (17:42→21:12)
--- NOTE | 2020-12-17 19:22 | PCM.PROG ---
Progress Note - Progress Note for Day of Date of Exam: 12/16/20 - Subjective Subjective: WAS ADMITTED FOR TREATMENT OF COVID PNEUMONIA, HYPOXIA, ACUTE ON CHRONIC RENAL FAILURE, UTI, HYPERKALEMIA, DYSPHAGIA, RECENT CVA. PMH: OBESITY, GERD, GOUT, SEIZURES, AND HTN. TODAY, SHE IS LYING IN BED WITH EYES CLOSED ON MORNING ROUNDS. SHE OPENS EYES TO VERBAL STIMULI, BUT DOES NOT VERBALLY RESPOND BACK. SHE IS CURRENTLY UTILIZING THE BIPAP. HER SATURATIONS HAVE BEEN 94-100%. OXYGEN IS AT 70%. SHE BECOMES HYPOXIC WITHOUT THE USE OF THE BIPAP. ON EXAMINATION, HEART IS REGULAR IN RATE AND RHYTHM. BILATERAL LUNGS ARE NOTED WITH RALES THROUGHOUT. ABDOMEN IS ROUND, SOFT, AND NON-TENDER WITH NORMAL BOWEL SOUNDS NOTED IN ALL QUADRANTS. HER VITALS THIS MORNING ARE: 98.3-101-16- 98%-159/73. LABS WERE OBTAINED. ABNORMAL LAB VALUES INCLUDE THE FOLLOWING: RBC 2.77, HGB 8.0, HCT 23.5, D-DIMER 4.45, SODIUM 154, POTASSIUM 5.7, CHLORIDE 117, CARBON DIOXIDE 12.9, BUN 100, CREATININE 3.68, GLUCOSE 201, CALCIUM 8.1, FERRITIN 8783, AST 118, ALT 93, ALK PHOS 167, CRP 165, BNP 1780, ALBUMIN 2.1. URINE AND BLOOD CULTURES ARE PENDING. ABG OBTAINED AND REVEALED: PH 7.300, PC02 27, P02 101, HC03 13.3, 02 SAT 97, A-A GRADIENT 364, FI02 70. BLOOD CULTURES ARE PENDING. URINE CULTURE REPORTS GROWTH OF KLEBSIELLA PNEUMONIAE. A CHEST XRAY WAS OBTAINED AND REVEALED: Persistent bilateral pneumonia with interval improvement in the left lower lung. SPEECH THERAPY EVALUATED PATIENT AND RECOMM ENDS NOTHING BY MOUTH. SHE IS CURRENTLY RECEIVING NS AT 150 ML/HR, LEVAQUIN 500MG IV Q48H, FORTAZ 0.5G IV DAILY, REMDESIVIR 100MG IV DAILY, ASCORBIC ACID 1500MG IV Q6H, ALBUTEROL NEBS QID, PULMICORT NEBS BID, BROVANA INHALER BID, SOLU-MEDROL 125MG IV Q6H, HEPARIN DRIP PER PROTOCOL, CEREBYL 200MG IV BID, CATAPRES PATCH, PEPCID 20MG IV BID, PROTONIX 40MG IV DAILY, THIAMINE 200MG IV BID, AND HUMULIN R SLIDING SCALE. WE WILL ADD TPN TODAY AND 1 AMP OF BICARB IN EACH LITER OF IV FLUIDS . WE WILL CHANGE IV FLUIDS TO NORMAL SALINE. WE WILL ALSO ADD ALBUMIN 25% IV BID. OTHERWISE, WE WILL CONTINUE WITH CURRENT PLAN OF CARE TODAY AND ATTEMPT TO WEAN DOWN OXYGEN SHE TOLERATES IT. WE WILL FOLLOW UP WITH AM LABS, CHEST XRAY, ABG, AND CONTINUE TO MONITOR. TIME SPENT ON CLINICAL ASSESSMENT, REVIEWING LABS AND IMAGING, DECISION MAKING, AND DOCUMENTATION GREATER THAN 75 MINUTES. - Past Medical Family Social History Past Med/Fam/Surg Hx: No changes since H&P Allergies: Allergies codeine Allergy (Verified 12/13/20 03:58) Penicillins Allergy (Verified 12/13/20 03:58) Sulfa (Sulfonamide Antibiotics) [SULFA] Allergy (Verified 12/13/20 03:58) - Review of Systems ROS: No change since H&P - Vital Signs and I&O's Vital Signs: Temperature 97.7 F Pulse Rate 137 Respiratory Rate 17 Blood Pressure [Right Arm] 184/78 Blood Pressure 104/56 O2 Sat by Pulse Oximetry 92 Intake and Output: Intake & Output 12/15/20 12/16/20 12/17/20 12/18/20 11:59 11:59 11:59 11:59 Intake Total 4110 / 4110 1396 / 1396 3532 / 3532 1491 / 1491 Output Total 2100 / 2100 1675 / 1675 1730 / 1730 600 / 600 Balance 2009 -279 / -279 1802 / 1802 891 / 891 - Physical Exam Oriented: Unable to test Eyes: Normal Ear: Normal Nose: Normal Throat: Normal Respiratory: Generalized, Diminished Cardiovascular: Normal : Normal Auscultation: Bowel Sounds: Normal Palpation: Normal Tenderness: Normal Skin: Decreased Turgur Musculoskeletal: Left (LEFT SIDED RESIDUAL WEAKNESS FROM RECENT CVA ), Arm, Leg, Motor Deficit Psychiatric: Other (LETHARGIC ) Mood Description: Calm Affect: Flat Speech Pattern: Slurred - Laboratory and Diagnostics Result Diagrams: 12/17/20 05:06 12/17/20 11:23 Labs: 12/13/20 04:45 Urine,Catheterized Urine Culture - Final Klebsiella Pneumoniae 12/13/20 11:48 Blood Blood Culture - Preliminary 12/13/20 11:31 Blood Blood Culture - Preliminary Laboratory WBC 6.6 X10^3/uL (3.6-10.0) 12/17/20 05:06 RBC 2.57 X10^6/uL (3.5-5.4) L 12/17/20 05:06 Hgb 7.4 g/dL (12.0-16.0) L 12/17/20 05:06 Hct 22.2 % (36.0-47.0) L 12/17/20 05:06 MCV 86.3 fL (80.0-100.0) 12/17/20 05:06 MCH 28.8 pg (27.0-34.0) 12/17/20 05:06 MCHC 33.4 g/dL (33.0-35.0) 12/17/20 05:06 RDW 14.3 % (11.6-16.5) 12/17/20 05:06 Plt Count 161 X10^3/uL (150.0-450.0) 12/17/20 05:06 Plt Count Comment Adequate (ADEQUATE) 12/17/20 05:06 MPV 7.7 fL (7.4-11.0) 12/17/20 05:06 Neut % (Auto) 93.4 % (42.0-75.0) H 12/17/20 05:06 Lymph % (Auto) 3.9 % (21.0-51.0) L 12/17/20 05:06 [place] % (Auto) 2.6 % (0.0-13.0) 12/17/20 05:06 Eos % (Auto) 0.0 % (0.9-2.9) L 12/17/20 05:06 Baso % (Auto) 0.1 % (0.2-1.0) L 12/17/20 05:06 Neut # (Auto) 6.2 x10^3/uL (2.2-4.8) H 12/17/20 05:06 Lymph # (Auto) 0.3 X10^3/uL (1.3-2.9) L 12/17/20 05:06 [place] # (Auto) 0.2 x10^3/uL (0.3-0.8) L 12/17/20 05:06 Eos # (Auto) 0.0 x10^3/uL (0.0-0.2) 12/17/20 05:06 Baso # (Auto) 0.0 X10^3/uL (0.0-0.1) 12/17/20 05:06 Absolute Nucleated RBC 0.1 /100WBC 12/17/20 05:06 Total Counted 100 12/17/20 05:06 Neutrophils % (Manual) 87 % (39-76) H 12/17/20 05:06 Band Neutrophils % 2 % (0-10) 12/17/20 05:06 Lymphocytes % (Manual) 9 % (13-43) L 12/17/20 05:06 Monocytes % (Manual) 2 % (4-9) L 12/17/20 05:06 Plt Morphology Comment Normal (NORMAL) 12/17/20 05:06 RBC Morphology Normal (NORMAL) 12/17/20 05:06 Hypochromasia Slight A 12/16/20 06:24 PT 15.4 SECONDS (11.8-14.3) 12/14/20 10:38 INR Target Range - 12/14/20 10:38 INR 1.28 (0.8-1.3) 12/14/20 10:38 APTT 86.6 SECONDS (22.9-36.5) H 12/17/20 16:15 PTT Comment - 12/17/20 16:15 D-Dimer 5.29 ug/ml (0.0-0.57) H* 12/17/20 05:06 Sample Site Lr 12/17/20 03:30 ABG pH 7.300 (7.35-7.45) L 12/17/20 03:30 ABG pCO2 29.0 mmHg (35.0-45.0) L 12/17/20 03:30 ABG pO2 58.0 mmHg (80.0-100.0) L 12/17/20 03:30 ABG HCO3 14.3 mmol/L (22-26) L* 12/17/20 03:30 ABG O2 Saturation 86.0 % (90-100) L 12/17/20 03:30 ABG Base Excess -10.8 mmol/L (-2.0-2.0) L 12/17/20 03:30 Brijesh Test Pos 12/17/20 03:30 A-a Gradient 405.0 mmHg 12/17/20 03:30 FiO2 70.0 12/17/20 03:30 Blood Gas Comments Maurice well ae 12/17/20 03:30 Sodium 157 mmol/L (136-145) H* 12/17/20 05:06 Corrected Sodium 161 mmol/L (136-145) H 12/17/20 05:06 Potassium 4.4 mmol/L (3.5-5.1) 12/17/20 05:06 Chloride 120 mmol/L (98-107) H* 12/17/20 05:06 Carbon Dioxide 16.5 mmol/L (21-32) L 12/17/20 05:06 BUN 109 mg/dL (7-18) H 12/17/20 05:06 Creatinine 3.77 mg/dL (0.55-1.02) H 12/17/20 05:06 Est GFR (MDRD) Af Amer 15 (>60) L 12/17/20 05:06 Est GFR (MDRD) Non-Af 13 (>60) L 12/17/20 05:06 Glucose 206 mg/dL (65-99) H 12/17/20 11:23 POC Glucose (mg/dL) 34 mg/dL (65-99) L* 12/16/20 10:36 Lactic Acid 2.5 mmol/L (0.4-2.0) H 12/13/20 19:09 Calcium 7.6 mg/dL (8.5-10.1) L 12/17/20 05:06 Corrected Calcium 8.7 mg/dL (8.5-10.1) 12/17/20 05:06 Phosphorus 8.5 mg/dL (2.6-4.7) H 12/16/20 05:52 Magnesium 2.7 mg/dL (1.7-2.9) 12/16/20 05:52 Ferritin 7837 ng/mL (8-252) H 12/17/20 05:06 Total Bilirubin 0.30 mg/dL (0.2-1.0) 12/17/20 05:06 AST 60 Units/L (15-37) H 12/17/20 05:06 ALT 63 Units/L (12-78) 12/17/20 05:06 Alkaline Phosphatase 144 Units/L (46-116) H 12/17/20 05:06 Creatine Kinase 142 Units/L (26-192) 12/13/20 23:30 CK-MB (CK-2) 2.2 ng/mL (0-4.0) 12/13/20 23:30 CK/CKMB % Calc 1.6 % (<4) 12/13/20 23:30 Troponin I 0.04 ng/mL (0-1.5) 12/13/20 23:30 C-Reactive Protein 88.70 mg/L (0-3.0) H 12/17/20 05:06 B-Natriuretic Peptide 2010 pg/mL (0-79) H* 12/17/20 05:06 Total Protein 6.4 g/dL (6.4-8.2) 12/17/20 05:06 Albumin 2.6 g/dL (3.4-5.0) L 12/17/20 05:06 Globulin 3.8 g/dL (2.5-4.5) 12/17/20 05:06 Albumin/Globulin Ratio 0.7 Ratio (1.1-2.1) L 12/17/20 05:06 Prealbumin 14.4 mg/dL (18-35.7) L 12/17/20 05:06 Triglycerides < 15 mg/dL (0-150) 12/16/20 05:52 Specimen Type Catherized urine 12/13/20 04:45 Urine Color Yellow (YELLOW) 12/13/20 04:45 Urine Appearance Cloudy (CLEAR) 12/13/20 04:45 Urine pH 5.0 (5.0 - 8.0) 12/13/20 04:45 Ur Specific [place] 1.020 (1.000-1.030) 12/13/20 04:45 Urine Protein 4+ (NEGATIVE) 12/13/20 04:45 Urine Glucose (UA) Negative (NEGATIVE) 12/13/20 04:45 Urine Ketones Negative (NEGATIVE) 12/13/20 04:45 Urine Occult Blood 3+ (NEGATIVE) 12/13/20 04:45 Urine Nitrite Negative (NEGATIVE) 12/13/20 04:45 Urine Bilirubin Negative (NEGATIVE) 12/13/20 04:45 Urine Urobilinogen Normal (NORMAL) 12/13/20 04:45 Ur Leukocyte Esterase 3+ (NEGATIVE) 12/13/20 04:45 Urine RBC 5-10 /HPF (0-3) A 12/13/20 04:45 Urine WBC Tntc /HPF (0-5) A 12/13/20 04:45 Ur Squamous Epith Cells Few /HPF (NEGATIVE) 12/13/20 04:45 Urine Bacteria 3+ /HPF (NEGATIVE) 12/13/20 04:45 Ur Culture Indicated? Yes/culture set up 12/13/20 04:45 Phenytoin 9.2 ug/mL (10-20) L 12/16/20 06:24 SARS-CoV-2 (PCR) Positive (NEGATIVE) A 12/13/20 04:15 Influenza Type A (PCR) Negative (NEGATIVE) 12/13/20 04:15 Influenza Type B (PCR) Negative (NEGATIVE) 12/13/20 04:15 RSV (PCR) Negative (NEGATIVE) 12/13/20 04:15 - Plan (1) Pneumonia due to COVID-19 virus Status: Acute Plan: BIPAP/SUPPLEMENTAL OXYGEN, 1/2 NS AT 110 ML/HR, TPN AT 40 ML/HR, ALBUMIN 25% IV BID, LEVAQUIN 500MG IV Q48H, FORTAZ 0.5G IV DAILY, REMDESIVIR 100MG IV DAILY, ASCORBIC ACID 1500MG IV Q6H, ALBUTEROL NEBS QID, PULMICORT NEBS BID, [place] INHALER BID, SOLU-MEDROL 125MG IV Q6H, HEPARIN DRIP PER PROTOCOL, CEREBYL 200MG IV BID, CATAPRES PATCH, PEPCID 20MG IV BID, PROTONIX 40MG IV DAILY, THIAMINE 200MG IV BID, AND HUMULIN R SLIDING SCALE. WE WILL HOLD HER IV FLUIDS FOR 12 HOURS AND THEN RESUME. (2) Hypoxia Status: Acute (3) Acute on chronic renal failure Status: Acute Qualifiers: Acute renal failure type: unspecified Chronic kidney disease stage: unspecified stage Qualified Code(s): N17.9 - Acute kidney failure, unspecified; N18.9 - Chronic kidney disease, unspecified (4) UTI (urinary tract infection) Status: Acute Qualifiers: Urinary tract infection type: acute cystitis Hematuria presence: with hematuria Qualified Code(s): N30.01 - Acute cystitis with hematuria (5) Hyperkalemia Status: Acute (6) Dysphagia Status: Acute Qualifiers: Dysphagia type: unspecified Qualified Code(s): R13.10 - Dysphagia, unspecified (7) Recent cerebrovascular accident (CVA) Status: Acute (8) HTN (hypertension) Status: Chronic Qualifiers: Hypertension type: primary hypertension Qualified Code(s): I10 - Essential (primary) hypertension (9) CAD (coronary artery disease) Status: Chronic Qualifiers: Coronary Disease-Associated Artery/Lesion type: [place] artery [place] vs. transplanted heart: [place] heart Associated angina: unspecified whether angina present Qualified Code(s): I25.10 - Atherosclerotic heart disease of [place] coronary artery without angina pectoris (10) COPD (chronic obstructive pulmonary disease) Status: Chronic Qualifiers: COPD type: unspecified COPD Qualified Code(s): J44.9 - Chronic obstructive pulmonary disease, unspecified (11) Seizure disorder Status: Chronic
--- NOTE | 2020-12-17 19:36 | PCM.PROG ---
Progress Note - Progress Note for Day of Date of Exam: 12/17/20 - Subjective Subjective: WAS ADMITTED FOR TREATMENT OF COVID PNEUMONIA, HYPOXIA, ACUTE ON CHRONIC RENAL FAILURE, UTI, HYPERKALEMIA, DYSPHAGIA, RECENT CVA. PMH: OBESITY, GERD, GOUT, SEIZURES, AND HTN. TODAY, SHE IS LYING IN BED WITH EYES CLOSED ON MORNING ROUNDS. SHE ONLY OPENS EYES TO PAINFUL STIMULI THIS MORNING. SHE IS CURRENTLY UTILIZING THE BIPAP. HER SATURATIONS HAVE BEEN 94-100%. OXYGEN IS AT 70%. SHE BECOMES HYPOXIC WITHOUT THE USE OF THE BIPAP. ON EXAMINATION, HEART IS REGULAR IN RATE AND RHYTHM. BILATERAL LUNGS ARE NOTED WITH RALES THROUGHOUT. ABDOMEN IS ROUND, SOFT, AND NON-TENDER WITH NORMAL BOWEL SOUNDS NOTED IN ALL QUADRANTS. HER VITALS THIS MORNING ARE: 98.7-108-18-95%-145/72. LABS WERE OBTAINED. ABNORMAL LAB VALUES INCLUDE THE FOLLOWING: RBC 2.57, HGB 7.4, HCT 22.2, D-DIMER 5.29, SODIUM 157, CHLORIDE 120, CARBON DIOXIDE 16.5, BUN 109, CREATININE 3.77, GLUCOSE 280, CALCIUM 7.6, FERRITIN 7837, AST 60, ALK PHOS 144, CRP 88.70, BNP 2010, ALBUMIN 2.6, PREALBUMIN 14.4. ABG OBTAINED AND REVEALED: PH 7.300, PC02 27, P02 58, HC03 14.3, 02 SAT 86, FI02 70. BLOOD CULTURES ARE PENDING. URINE CULTURE REPORTS GROWTH OF KLEBSIELLA PNEUMONIAE. A CHEST XRAY WAS OBTAINED AND REVEALED: 1. Progressed pneumonia or pulmonary edema. SPEECH THERAPY EVALUATED PATIENT AND RECOMMENDS NOTHING BY MOUTH. SHE IS CURRENTLY RECEIVING 1/2NS AT 100 ML/HR WITH 1 AMP BICARB IN EACH LITER, TPN AT 40 ML/HR, LEVAQUIN 500MG IV Q48H, FORTAZ 0.5G IV DAILY, ALBUMIN 25% IV BID, REMDESIVIR 100MG IV DAILY, ASCORBIC ACID 1500MG IV Q6H, ALBUTEROL NEBS QID, PULMICORT NEBS BID, BROVANA INHALER BID, SOLU-MEDROL 125MG IV Q6H, HEPARIN DRIP PER PROTOCOL, CEREBYX 200MG IV BID, CATAPRES PATCH, PEPCID 20MG IV BID, PROTONIX 40MG IV DAILY, THIAMINE 200MG IV BID, AND HUMULIN R SLIDING SCALE. WE WILL CONTINUE WITH CURRENT PLAN OF CARE TODAY. WE WILL DISCUSS WITH HER FAMILY MEMBERS TODAY HER CONDITION AND SUSPECTED PROGNOSIS. OTHERWISE, WE WILL FOLLOW UP WITH AM LABS, CHEST XRAY, ABG, AND CONTINUE TO MONITOR. TIME SPENT ON CLINICAL ASSESSMENT, REVIEWING LABS AND IMAGING, DECISION MAKING, AND DOCUMENTATION GREATER THAN 75 MINUTES. - Past Medical Family Social History Past Med/Fam/Surg Hx: No changes since H&P Allergies: Allergies codeine Allergy (Verified 12/13/20 03:58) Penicillins Allergy (Verified 12/13/20 03:58) Sulfa (Sulfonamide Antibiotics) [SULFA] Allergy (Verified 12/13/20 03:58) - Review of Systems ROS: No change since H&P - Vital Signs and I&O's Vital Signs: Temperature 97.7 F Pulse Rate 137 Respiratory Rate 17 Blood Pressure [Right Arm] 184/78 Blood Pressure 104/56 O2 Sat by Pulse Oximetry 92 Intake and Output: Intake & Output 12/15/20 12/16/20 12/17/20 12/18/20 11:59 11:59 11:59 11:59 Intake Total 4110 / 4110 1396 / 1396 3532 / 3532 1491 / 1491 Output Total 2100 / 2100 1675 / 1675 1730 / 1730 600 / 600 Balance 2009 -279 / -279 1802 / 1802 891 / 891 - Physical Exam Oriented: Unable to test Eyes: Normal Ear: Normal Nose: Normal Throat: Normal Respiratory: Generalized, Diminished Cardiovascular: Normal : Normal Auscultation: Bowel Sounds: Normal Palpation: Normal Tenderness: Normal Skin: Decreased Turgur Musculoskeletal: Left (LEFT SIDED RESIDUAL WEAKNESS FROM RECENT CVA ), Arm, Leg, Motor Deficit Psychiatric: Other (LETHARGIC ) Mood Description: Calm Affect: Flat Speech Pattern: Slurred - Laboratory and Diagnostics Result Diagrams: 12/17/20 05:06 12/17/20 11:23 Labs: 12/13/20 04:45 Urine,Catheterized Urine Culture - Final Klebsiella Pneumoniae 12/13/20 11:48 Blood Blood Culture - Preliminary 12/13/20 11:31 Blood Blood Culture - Preliminary Laboratory WBC 6.6 X10^3/uL (3.6-10.0) 12/17/20 05:06 RBC 2.57 X10^6/uL (3.5-5.4) L 12/17/20 05:06 Hgb 7.4 g/dL (12.0-16.0) L 12/17/20 05:06 Hct 22.2 % (36.0-47.0) L 12/17/20 05:06 MCV 86.3 fL (80.0-100.0) 12/17/20 05:06 MCH 28.8 pg (27.0-34.0) 12/17/20 05:06 MCHC 33.4 g/dL (33.0-35.0) 12/17/20 05:06 RDW 14.3 % (11.6-16.5) 12/17/20 05:06 Plt Count 161 X10^3/uL (150.0-450.0) 12/17/20 05:06 Plt Count Comment Adequate (ADEQUATE) 12/17/20 05:06 MPV 7.7 fL (7.4-11.0) 12/17/20 05:06 Neut % (Auto) 93.4 % (42.0-75.0) H 12/17/20 05:06 Lymph % (Auto) 3.9 % (21.0-51.0) L 12/17/20 05:06 [place] % (Auto) 2.6 % (0.0-13.0) 12/17/20 05:06 Eos % (Auto) 0.0 % (0.9-2.9) L 12/17/20 05:06 Baso % (Auto) 0.1 % (0.2-1.0) L 12/17/20 05:06 Neut # (Auto) 6.2 x10^3/uL (2.2-4.8) H 12/17/20 05:06 Lymph # (Auto) 0.3 X10^3/uL (1.3-2.9) L 12/17/20 05:06 [place] # (Auto) 0.2 x10^3/uL (0.3-0.8) L 12/17/20 05:06 Eos # (Auto) 0.0 x10^3/uL (0.0-0.2) 12/17/20 05:06 Baso # (Auto) 0.0 X10^3/uL (0.0-0.1) 12/17/20 05:06 Absolute Nucleated RBC 0.1 /100WBC 12/17/20 05:06 Total Counted 100 12/17/20 05:06 Neutrophils % (Manual) 87 % (39-76) H 12/17/20 05:06 Band Neutrophils % 2 % (0-10) 12/17/20 05:06 Lymphocytes % (Manual) 9 % (13-43) L 12/17/20 05:06 Monocytes % (Manual) 2 % (4-9) L 12/17/20 05:06 Plt Morphology Comment Normal (NORMAL) 12/17/20 05:06 RBC Morphology Normal (NORMAL) 12/17/20 05:06 Hypochromasia Slight A 12/16/20 06:24 PT 15.4 SECONDS (11.8-14.3) 12/14/20 10:38 INR Target Range - 12/14/20 10:38 INR 1.28 (0.8-1.3) 12/14/20 10:38 APTT 86.6 SECONDS (22.9-36.5) H 12/17/20 16:15 PTT Comment - 12/17/20 16:15 D-Dimer 5.29 ug/ml (0.0-0.57) H* 12/17/20 05:06 Sample Site Lr 12/17/20 03:30 ABG pH 7.300 (7.35-7.45) L 12/17/20 03:30 ABG pCO2 29.0 mmHg (35.0-45.0) L 12/17/20 03:30 ABG pO2 58.0 mmHg (80.0-100.0) L 12/17/20 03:30 ABG HCO3 14.3 mmol/L (22-26) L* 12/17/20 03:30 ABG O2 Saturation 86.0 % (90-100) L 12/17/20 03:30 ABG Base Excess -10.8 mmol/L (-2.0-2.0) L 12/17/20 03:30 Brijesh Test Pos 12/17/20 03:30 A-a Gradient 405.0 mmHg 12/17/20 03:30 FiO2 70.0 12/17/20 03:30 Blood Gas Comments Maurice well ae 12/17/20 03:30 Sodium 157 mmol/L (136-145) H* 12/17/20 05:06 Corrected Sodium 161 mmol/L (136-145) H 12/17/20 05:06 Potassium 4.4 mmol/L (3.5-5.1) 12/17/20 05:06 Chloride 120 mmol/L (98-107) H* 12/17/20 05:06 Carbon Dioxide 16.5 mmol/L (21-32) L 12/17/20 05:06 BUN 109 mg/dL (7-18) H 12/17/20 05:06 Creatinine 3.77 mg/dL (0.55-1.02) H 12/17/20 05:06 Est GFR (MDRD) Af Amer 15 (>60) L 12/17/20 05:06 Est GFR (MDRD) Non-Af 13 (>60) L 12/17/20 05:06 Glucose 206 mg/dL (65-99) H 12/17/20 11:23 POC Glucose (mg/dL) 34 mg/dL (65-99) L* 12/16/20 10:36 Lactic Acid 2.5 mmol/L (0.4-2.0) H 12/13/20 19:09 Calcium 7.6 mg/dL (8.5-10.1) L 12/17/20 05:06 Corrected Calcium 8.7 mg/dL (8.5-10.1) 12/17/20 05:06 Phosphorus 8.5 mg/dL (2.6-4.7) H 12/16/20 05:52 Magnesium 2.7 mg/dL (1.7-2.9) 12/16/20 05:52 Ferritin 7837 ng/mL (8-252) H 12/17/20 05:06 Total Bilirubin 0.30 mg/dL (0.2-1.0) 12/17/20 05:06 AST 60 Units/L (15-37) H 12/17/20 05:06 ALT 63 Units/L (12-78) 12/17/20 05:06 Alkaline Phosphatase 144 Units/L (46-116) H 12/17/20 05:06 Creatine Kinase 142 Units/L (26-192) 12/13/20 23:30 CK-MB (CK-2) 2.2 ng/mL (0-4.0) 12/13/20 23:30 CK/CKMB % Calc 1.6 % (<4) 12/13/20 23:30 Troponin I 0.04 ng/mL (0-1.5) 12/13/20 23:30 C-Reactive Protein 88.70 mg/L (0-3.0) H 12/17/20 05:06 B-Natriuretic Peptide 2010 pg/mL (0-79) H* 12/17/20 05:06 Total Protein 6.4 g/dL (6.4-8.2) 12/17/20 05:06 Albumin 2.6 g/dL (3.4-5.0) L 12/17/20 05:06 Globulin 3.8 g/dL (2.5-4.5) 12/17/20 05:06 Albumin/Globulin Ratio 0.7 Ratio (1.1-2.1) L 12/17/20 05:06 Prealbumin 14.4 mg/dL (18-35.7) L 12/17/20 05:06 Triglycerides < 15 mg/dL (0-150) 12/16/20 05:52 Specimen Type Catherized urine 12/13/20 04:45 Urine Color Yellow (YELLOW) 12/13/20 04:45 Urine Appearance Cloudy (CLEAR) 12/13/20 04:45 Urine pH 5.0 (5.0 - 8.0) 12/13/20 04:45 Ur Specific [place] 1.020 (1.000-1.030) 12/13/20 04:45 Urine Protein 4+ (NEGATIVE) 12/13/20 04:45 Urine Glucose (UA) Negative (NEGATIVE) 12/13/20 04:45 Urine Ketones Negative (NEGATIVE) 12/13/20 04:45 Urine Occult Blood 3+ (NEGATIVE) 12/13/20 04:45 Urine Nitrite Negative (NEGATIVE) 12/13/20 04:45 Urine Bilirubin Negative (NEGATIVE) 12/13/20 04:45 Urine Urobilinogen Normal (NORMAL) 12/13/20 04:45 Ur Leukocyte Esterase 3+ (NEGATIVE) 12/13/20 04:45 Urine RBC 5-10 /HPF (0-3) A 12/13/20 04:45 Urine WBC Tntc /HPF (0-5) A 12/13/20 04:45 Ur Squamous Epith Cells Few /HPF (NEGATIVE) 12/13/20 04:45 Urine Bacteria 3+ /HPF (NEGATIVE) 12/13/20 04:45 Ur Culture Indicated? Yes/culture set up 12/13/20 04:45 Phenytoin 9.2 ug/mL (10-20) L 12/16/20 06:24 SARS-CoV-2 (PCR) Positive (NEGATIVE) A 12/13/20 04:15 Influenza Type A (PCR) Negative (NEGATIVE) 12/13/20 04:15 Influenza Type B (PCR) Negative (NEGATIVE) 12/13/20 04:15 RSV (PCR) Negative (NEGATIVE) 12/13/20 04:15 - Plan (1) Pneumonia due to COVID-19 virus Status: Acute Plan: BIPAP/SUPPLEMENTAL OXYGEN, 1/2 NS AT 110 ML/HR, TPN AT 40 ML/HR, ALBUMIN 25% IV BID, LEVAQUIN 500MG IV Q48H, FORTAZ 0.5G IV DAILY, REMDESIVIR 100MG IV DAILY, ASCORBIC ACID 1500MG IV Q6H, ALBUTEROL NEBS QID, PULMICORT NEBS BID, BROVANA INHALER BID, SOLU-MEDROL 125MG IV Q6H, HEPARIN DRIP PER PROTOCOL, CEREBYL 200MG IV BID, CATAPRES PATCH, PEPCID 20MG IV BID, PROTONIX 40MG IV DAILY, THIAMINE 200MG IV BID, AND HUMULIN R SLIDING SCALE. WE WILL HOLD HER IV FLUIDS FOR 12 HOURS AND THEN RESUME. (2) Hypoxia Status: Acute (3) Acute on chronic renal failure Status: Acute Qualifiers: Acute renal failure type: unspecified Chronic kidney disease stage: uns pecified stage Qualified Code(s): N17.9 - Acute kidney failure, unspecified; N18.9 - Chronic kidney disease, unspecified (4) UTI (urinary tract infection) Status: Acute Qualifiers: Urinary tract infection type: acute cystitis Hematuria presence: with hematuria Qualified Code(s): N30.01 - Acute cystitis with hematuria (5) Hyperkalemia Status: Acute (6) Dysphagia Status: Acute Qualifiers: Dysphagia type: unspecified Qualified Code(s): R13.10 - Dysphagia, unspecified (7) Recent cerebrovascular accident (CVA) Status: Acute (8) HTN (hypertension) Status: Chronic Qualifiers: Hypertension type: primary hypertension Qualified Code(s): I10 - Essential (primary) hypertension (9) CAD (coronary artery disease) Status: Chronic Qualifiers: Coronary Disease-Associated Artery/Lesion type: [place] artery [place] vs. transplanted heart: [place] heart Associated angina: unspecified whether angina present Qualified Code(s): I25.10 - Atherosclerotic heart disease of [place] coronary artery without angina pectoris (10) COPD (chronic obstructive pulmonary disease) Status: Chronic Qualifiers: COPD type: unspecified COPD Qualified Code(s): J44.9 - Chronic obstructive pulmonary disease, unspecified (11) Seizure disorder Status: Chronic
[2020-12-18] MEDS: SOLU-Medrol 125 MG VIAL IVP SCH ×2 (02:29→10:24)
[2020-12-18] MEDS: CARDIZEM INJ 125 MG VIAL 125 MG in NS 100 ML IV 100 ML IV PRN (04:38)
[2020-12-18 05:00] LABS: ABG BASE EXCESS -11.1 mmol/L (-2.0-2.0)
[2020-12-18 05:01] LABS: ABG HCO3 17.5 mmol/L (22-26)
[2020-12-18 05:02] LABS: ABG ALLEN TEST POS
[2020-12-18 06:48] LABS: ALBUMIN 2.8 g/dL (3.4-5.0); CALCIUM 7.3 mg/dL (8.5-10.1); CARBON DIOXIDE 17.8 mmol/L (21-32); COR CA(FOR HYPOALB) 8.3 mg/dL (8.5-10.1); CREATININE 4.32 mg/dL (0.55-1.02)
[2020-12-18 06:58] LABS: BASOPHILS % (AUTO) 0.2 % (0.2-1.0); EOSINOPHILS % (AUTO) 0.1 % (0.9-2.9); HEMATOCRIT 20.4 % (36.0-47.0); LYMPHOCYTES # (AUTO) 0.1 X10^3/uL (1.3-2.9); LYMPHOCYTES % (AUTO) 2.2 % (21.0-51.0); MEAN CORPUSCULAR HEMOGLOBIN 28.8 pg (27.0-34.0); MEAN CORPUSCULAR HGB CONC 32.6 g/dL (33.0-35.0); MEAN CORPUSCULAR VOLUME 88.3 fL (80.0-100.0); MEAN PLATELET VOLUME 7.8 fL (7.4-11.0); MONOCYTES # (AUTO) 0.1 x10^3/uL (0.3-0.8); MONOCYTES % (AUTO) 1.4 % (0.0-13.0); NEUTROPHILS # (AUTO) 6.4 x10^3/uL (2.2-4.8); NEUTROPHILS % (AUTO) 96.1 % (42.0-75.0); PLATELET COUNT 104 X10^3/uL (150.0-450.0); RED BLOOD COUNT 2.31 X10^6/uL (3.5-5.4); RED CELL DISTRIBUTION WIDTH 14.7 % (11.6-16.5); WHITE BLOOD COUNT 6.6 X10^3/uL (3.6-10.0)
[2020-12-18 07:02] LABS: HEMOGLOBIN 6.7 g/dL (12.0-16.0)
[2020-12-18 07:06] LABS: BAND NEUTROPHILS % 3 % (0-10); PLATELET MORPHOLOGY COMMENT NORMAL (NORMAL)
--- NOTE | 2020-12-18 08:16 | RAD ---
HISTORYSOB, COVID-19STUDYCHEST x-ray, 1 VIEWCOMPARISONX-ray from previous dayFINDINGSDiffuse interstitial, ground-glass, and alveolar infiltrates are seen. Findings suggest prominent COVID-19 pneumonia. Heart is normal in size. Central venous catheter terminates in the region of the proximal SVC. No pneumothorax is seen. Small right pleural effusion is not excluded.IMPRESSIONPersistent prominent COVID-19 pneumonia.Electronically signed by: Mykel Ratliff (Dec 18, 2020 08:14:49)
[2020-12-18] MEDS: FORTAZ OR TAZICEF IV SCH (08:54)
[2020-12-18] MEDS: NS IV SCH (08:54)
[2020-12-18] MEDS: PULMICORT NEB TX 0.5 MG NEB SCH (09:42)
[2020-12-18] MEDS: BROVANA IN SCH (09:42)
[2020-12-18] MEDS ORDERED: NS 50 ML IV 50 ML IV ONE (10:12)
[2020-12-18] MEDS: ALBUMIN HUMAN 25%- 100 ML 100 ML IV SCH (10:23)
[2020-12-18] MEDS: CEREBYX INJ 200 MG in NS 50 ML IV 50 ML IV SCH (10:23)
[2020-12-18] MEDS: THIAMINE HCL INJ IVP SCH (10:24)
[2020-12-18] MEDS: PROTONIX INJ 40 MG VIAL IVP SCH (10:24)
[2020-12-18] MEDS: ACCUNEB 1.25 MG NEBULE NEB SCH (13:44)
[2020-12-18 18:07] VITALS: BP 91/46
== END 2020-12-18 19:55 | disposition expired | DRG 177 ==
LOC: SUPCPDRO → ER 03:47 → OBS 10:25 → ICU 17:41
PROVIDERS: ADMIT Internal Medicine; ATTEND Internal Medicine
DX: I12.9 Hypertensive chronic kidney disease with stage 1 through stage 4 chronic kidney disease, or unspecified chronic kidney disease; I69.891 Dysphagia following other cerebrovascular disease; R13.19 Other dysphagia; B96.1 Klebsiella pneumoniae [K. pneumoniae] as the cause of diseases classified elsewhere; I87.2 Venous insufficiency (chronic) (peripheral); M10.9 Gout, unspecified; E87.5 Hyperkalemia; U07.1 COVID-19; R09.02 Hypoxemia; R13.10 Dysphagia, unspecified; N30.01 Acute cystitis with hematuria; R56.9 Unspecified convulsions; E66.9 Obesity, unspecified; I69.828 Other speech and language deficits following other cerebrovascular disease; N17.9 Acute kidney failure, unspecified; Z66 Do not resuscitate; N18.9 Chronic kidney disease, unspecified; J44.9 Chronic obstructive pulmonary disease, unspecified; J12.81 Pneumonia due to SARS-associated coronavirus